=== PATIENT | male | born 1950 | race Caucasian/White ===

== ENCOUNTER 2017-01-17 09:08 | Observation (INO) | payer MEDICARE ==
[2017-01-17 10:12] LABS: BASO # 0.1 K/uL (0.0-0.2); BASO % 0.7 % (0.0-2.0); EOS # 0.1 K/uL (0.0-0.7); EOS % 0.9 % (0.0-4.0); HEMATOCRIT 39.7 % (35.0-51.0); LYMPH # 1.9 K/uL (1.0-4.3); LYMPH % 20.7 % (20.0-40.0); MEAN CELL VOLUME 91.5 fL (80.0-94.0); MEAN CORPUSCULAR HEMOGLOBIN 30.2 pg (27.0-31.0); MEAN CORPUSCULAR HGB CONC 33.1 g/dL (33.0-37.0); MONO # 0.6 K/uL (0.0-0.8); MONO % 6.8 % (0.0-10.0); RED CELL DISTRIBUTION WIDTH 12.6 % (11.5-14.5); WHITE BLOOD COUNT 9.2 K/uL (4.8-10.8)
[2017-01-17 10:19] LABS: CHLORIDE 101 mmol/L (98-107); SODIUM 137 mmol/L (132-148)
[2017-01-17 10:20] LABS: POTASSIUM 4.4 mmol/L (3.6-5.2)
[2017-01-17 10:22] LABS: ALB/GLOB RATIO 2.5 (1.0-2.1); ALKALINE PHOSPHATASE 60 U/L (38-126); ALT/SGPT 35 U/L (21-72); AST/SGOT 25 U/L (17-59); BILIRUBIN,TOTAL 0.8 mg/dL (0.2-1.3); BLOOD UREA NITROGEN 18 mg/dL (9-20); CARBON DIOXIDE 19 mmol/L (22-30); GFR AFRICAN-AMERICAN > 60; GLUCOSE,RANDOM 188 mg/dL (75-110); TOTAL PROTEIN 7.8 g/dL (6.3-8.3)
[2017-01-17 10:23] LABS: CALCIUM 9.1 mg/dl (8.6-10.4)
[2017-01-17 10:27] LABS: INR 0.9
--- NOTE | 2017-01-17 11:09 | C.PDOC ---
History Of Present Illness 66 y/o male presents to ED with complaints of worsening pain on right lower extremity with poor circulation. Patient was sent to ED by for evaluation. Patient denies fever, chills or any other complaints at this time. Chief Complaint (Nursing): Lower Extremity Problem/Injury History Per: Patient History/Exam Limitations: no limitations Onset/Duration Of Symptoms: Days Past Medical History Vital Signs: Last Vital Signs Temp 97.3 F L 01/17/17 14:15 Pulse 86 01/17/17 14:15 Resp 20 01/17/17 14:15 BP 147/74 01/17/17 14:15 Pulse Ox 97 01/17/17 18:04 - Medical History PMH: Diabetes, HTN, Hypercholesterolemia - [facility] Procedures CLOSED ENDOSCOPIC BIOPSY OF LUNG (12/24/14) Family History: States: No Known Family Hx - Social History Hx Tobacco Use: No Hx Alcohol Use: No Hx Substance Use: No - Immunization History Hx Tetanus Toxoid Vaccination: No Hx Influenza Vaccination: Yes Hx Pneumococcal Vaccination: No Review Of Systems Constitutional: Negative for: Fever, Chills Musculoskeletal: Positive for: Leg Pain. Negative for: Back Pain Skin: Negative for: Bruising Neurological: Negative for: Weakness Physical Exam - Physical Exam Appears: Non-toxic, No Acute Distress Skin: Normal Color, Warm Head: Atraumatic, Normacephalic Cardiovascular: Rhythm Regular Respiratory: Normal Breath Sounds, No Rales, No Rhonchi, No Wheezing Gastrointestinal/Abdominal: Soft, No Tenderness, No Guarding, No Rebound Extremity: Normal ROM, Other (1 cm oval ulcer to medial aspect of right great toe , no redness or warmth) Extremity: Right: Other (rt great toe and 2nd toe darker than other toes) Pulses: Right Dorsalis Pedis: Decreased Neurological/Psych: Oriented x3, Normal Speech, Normal Cognition, Normal Motor, Normal Sensation ED Course And Treatment - Laboratory Results Result Diagrams: 01/17/17 10:05 01/17/17 10:05 ECG Rhythm: Sinus Rhythm ECG Interpretation: Normal O2 Sat by Pulse Oximetry: 97 (Room air ) Pulse Ox Interpretation: Normal Medical Decision Making Medical Decision Making: discussed with Dr Gomez; pt to go for angiogram at 2, admit to his service. Disposition Discussed With DrRigo: Issac Gomez Jr. 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 - Scribe Statement The provider has reviewed the documentation as recorded by the Cece Wylie All medical record entries made by the Cece were at my direction and personally dictated by me. I have reviewed the chart and agree that the record accurately reflects my personal performance of the history, physical exam, medical decision making, and the department course for this patient. I have also personally directed, reviewed, and agree with the discharge instructions and disposition. Decision To Admit - Pt Status Changed To: Hospital Disposition Of: Observation - . Bed Request Type: Regular Admitting Physician: Issac Gomez Jr. Patient Diagnosis: Ulcer of foot, Venous insufficiency of right leg
--- NOTE | 2017-01-17 11:54 | RAD ---
HISTORY: pre op COMPARISON: Chest x-ray performed 01/17/15, CT chest with contrast performed 12/24/14 TECHNIQUE: Chest, one view. FINDINGS: LUNGS: Limited visualization of right lung apex cavitary mass which persists. Please note that chest x-ray has limited sensitivity for the detection of pulmonary masses. PLEURA: No significant pleural effusion identified. No definite pneumothorax . CARDIOVASCULAR: Heart size appears within normal limits. Atherosclerotic calcifications of the aorta. OSSEOUS STRUCTURES: Degenerative changes. Calcific tendinitis, right shoulder. Acromioclavicular arthropathy. VISUALIZED UPPER ABDOMEN: Unremarkable. OTHER FINDINGS: None. IMPRESSION: Limited visualization of right lung apex cavitary mass which persists, possibly slightly decreased in size since prior study.
[2017-01-17 14:25] VITALS: RESP 20
[2017-01-17] MEDS ORDERED: Propofol 10 mg/ml Inj (20 ML) ONE (15:03)
[2017-01-17] MEDS ORDERED: Midazolam 2 MG/2 ML VIAL ONE (15:03)
[2017-01-17] MEDS ORDERED: Iodixanol 320 MG/ML 100 ML BOTTLE IV ONE (15:15)
[2017-01-17] MEDS ORDERED: Iodixanol 320 MG/ML 200 ML BOTTLE IV ONE (15:15)
[2017-01-17] MEDS ORDERED: Sodium Chloride 0.9% 1,000 ML IV PRN (16:19)
[2017-01-17] MEDS ORDERED: HYDROmorphone 0.5 mg/0.5 ml ISec IVP PRN (16:19)
--- NOTE | 2017-01-17 16:24 | PCM.SURG1 ---
Surgeon's Initial Post Op Note - Surgeon's Notes Surgeon: beto Lieutenant/Deputy: 0 Type of Anesthesia: IV Sedation Anesthesia Administered By: marcus Pre-Operative Diagnosis: ischemic toe ulcer right Operative Findings: severe tibial disease on right. anterior tibial open to just above ankle. posterior tibial fades into collaterals. peroneal fades to collaterals. no intervention Post-Operative Diagnosis: same Operation Performed: aortofemoral angiogram via left groin with selective catherization of right anterior tibial artery Specimen/Specimens Removed: 0 Estimated Blood Loss: EBL {In ML}: 50 Blood Products Given: N/A Drains Used: No Drains Post-Op Condition: Good Date of Surgery/Procedure: 01/17/17 Time of Surgery/Procedure: 16:25
[2017-01-17] MEDS: Lactated Ringer's 1,000 ML IV SCH (17:52)
--- NOTE | 2017-01-17 20:07 | CP.PCM.HP ---
Past Patient History - Tetanus Immunizations Tetanus Immunization: Up to Date (2011) - Past Medical History & Family History Past Medical History?: Yes - Past Social History Smoking Status: Never Smoked - CARDIAC Hx Hypercholesterolemia: Yes Hx Hypertension: Yes - PULMONARY Hx Respiratory Disorders: Yes Hx Tuberculosis: Yes - NEUROLOGICAL Hx Neurological Disorder: No - HEENT Hx HEENT Problems: No - RENAL Hx Chronic Kidney Disease: No - ENDOCRINE/METABOLIC Hx Endocrine Disorders: Yes Hx Diabetes Mellitus Type 2: Yes - HEMATOLOGICAL/ONCOLOGICAL Hx Blood Disorders: No - INTEGUMENTARY Hx Dermatological Problems: No - MUSCULOSKELETAL/RHEUMATOLOGICAL Hx Falls: No - GASTROINTESTINAL Hx Gastrointestinal Disorders: No - GENITOURINARY/GYNECOLOGICAL Hx Genitourinary Disorders: No - PSYCHIATRIC Hx Substance Use: No - SURGICAL HISTORY Hx Surgeries: Yes Other/Comment: RT EYE SX - ANESTHESIA Hx Anesthesia: Yes Hx Anesthesia Reactions: No Hx Malignant Hyperthermia: No Meds Allergies/Adverse Reactions: Allergies Allergy/AdvReac Type Severity Reaction Status Date / Time No Known Allergies Allergy Verified 12/24/14 13:10 Results - Vital Signs Recent Vital Signs: Last Vital Signs Temp 98 F 01/17/17 17:00 Pulse 72 01/17/17 17:00 Resp 20 01/17/17 17:00 BP 123/72 01/17/17 17:00 Pulse Ox 97 01/17/17 18:05 - Labs Result Diagrams: 01/17/17 10:05 01/17/17 10:05
--- NOTE | 2017-01-17 21:51 | VAS ---
DATE: 01/17/2017 PREOPERATIVE DIAGNOSIS: Ischemic ulceration of right foot. PROCEDURE CARRIED OUT: Aortofemoral angiogram with selective catheterization of right anterior tibia l artery. SURGEON: Issac Gomez MD. DIRECTOR LABOR STANDARDS: None. ANESTHESIOLOGIST: Dr. Bourgeois. ANESTHESIA: Local with sedation. INDICATIONS: The patient is a 66-year-old male diabetic who presents with ischemic ulcer on the toe, he had been seen previously and initially treatment started conservatively. Today, he came to the E mergency Room because of increasing pain in the foot and nonhealing of the wound. OPERATIVE FINDINGS: The aorta, renal arteries and internal iliac arteries, external iliac arteries, common iliac arteries, common femoral arteries, profunda femoris arteries and superficial femoral art eries were normal. On the left side, the proximal 2/3 of the tibial vessels were seen, and they are basically intact. In the right leg, which was the affected leg, there was a slight degree of stenosi s in the popliteal artery. The anterior tibial artery was the dominant vessel into the foot; however , just above the ankle it was occluded and there were 2 other stenotic segments here. The posterior tibial trail off into collaterals as it approached the foot and the peroneal faded out into collatera ls. Subsequent to the performance of diagnostic arteriogram, a 6-Yoruba sheath was advanced over the aort ic bifurcation and positioned in the popliteal artery. Using road mapping techniques, the anterior t ibial artery was cannulated and the catheter inserted distally. With a variety of wires and techniqu es we attempted to cross a heavily calcified lesion at the distal portion of the anterior tibial mariusz ry just proximal to the dorsalis pedis, but were unable to do so. This is despite multiple attempts with multiple wires in multiple locations, etc. We then abandoned this and applied a Perclose device in the groin. Films were available which we reviewed, shows an intact dorsalis pedis artery with on ly a proximal occlusion of approximately a 1.5 cm. This would be amenable to bypass if the foot fails to improve. OPERATION CARRIED OUT: Aortofemoral angiogram with selective catheterization of right anterior tibia l artery, attempted crossing which was unsuccessful, Perclose deployment in the left groin. Issac Gomez Jr., MD cc:Vale Crow MD 56 TT: 01/17/2017 21:50:57 Confirmation # [id number] Dictation # [id number]
[2017-01-17] MEDS ORDERED: Rosuvastatin Calcium 2.5 mg Tab PO SCH (22:00)
[2017-01-17] MEDS: (Novolin R) Insulin Human Regular 100 units/ml vial SC SCH (22:16)
--- NOTE | 2017-01-17 23:40 | CP.PCM.CON ---
History of Present Illness - History of Present Illness History of Present Illness: Patient with hypertension diabetes PTB s/p treatment , - underwent angiogram- Right LE PAD currently patient has no complaints - but with a dry lesion right big toe, with no fever no chest pain PMH as above Social- non smoker non etoh brandy with family Review of Systems - Constitutional Constitutional: absent: Chills, Fever - EENT Eyes: absent: Change in Vision Ears: Ear Discharge. absent: Disequilibrium Nose/Mouth/Throat: Bleeding Gums - Cardiovascular Cardiovascular: Chest Pain, Pedal Edema - Respiratory Respiratory: Cough, Wheezing - Genitourinary Genitourinary: Difficulty Urinating - Musculoskeletal Musculoskeletal: Numbness, Radiating Pain into Limb - Integumentary Integumentary: Rash, Skin Ulcer (dry ulcer right big toe ) - Neurological Neurological: absent: Abnormal Hearing, Abnormal Movements, Behavioral Changes, Dizziness - Psychiatric Psychiatric: absent: Behavioral Changes, Confusion, Depression - Endocrine Endocrine: Palpitations - Hematologic/Lymphatic Hematologic: Easy Bleeding. absent: Easy Bruising Past Patient History - Tetanus Immunizations Tetanus Immunization: Up to Date (2011) - Past Medical History & Family History Past Medical History?: Yes - Past Social History Smoking Status: Never Smoked - CARDIAC Hx Hypercholesterolemia: Yes Hx Hypertension: Yes - PULMONARY Hx Respiratory Disorders: Yes (PTB s/p treatment ) Hx Tuberculosis: Yes - NEUROLOGICAL Hx Neurological Disorder: No - HEENT Hx HEENT Problems: No - RENAL Hx Chronic Kidney Disease: No - ENDOCRINE/METABOLIC Hx Endocrine Disorders: Yes Hx Diabetes Mellitus Type 2: Yes - HEMATOLOGICAL/ONCOLOGICAL Hx Blood Disorders: No - INTEGUMENTARY Hx Dermatological Problems: No - MUSCULOSKELETAL/RHEUMATOLOGICAL Hx Falls: No - GASTROINTESTINAL Hx Gastrointestinal Disorders: No - GENITOURINARY/GYNECOLOGICAL Hx Genitourinary Disorders: No - PSYCHIATRIC Hx Substance Use: No - SURGICAL HISTORY Hx Surgeries: Yes Other/Comment: RT EYE SX - ANESTHESIA Hx Anesthesia: Yes Hx Anesthesia Reactions: No Hx Malignant Hyperthermia: No Meds Allergies/Adverse Reactions: Allergies Allergy/AdvReac Type Severity Reaction Status Date / Time No Known Allergies Allergy Verified 12/24/14 13:10 - Medications Medications: Current Medications Enoxaparin Sodium (Lovenox) 30 mg SC DAILY [facility] Glimepiride (Amaryl) 4 mg PO BID [facility] Last Admin: 01/17/17 17:52 Dose: 4 mg Lactated Ringer's (Lactated Ringer's) 1,000 mls @ 100 mls/hr IV .Q10H [facility] Last Admin: 01/17/17 17:52 Dose: 100 mls/hr Sodium Chloride (Sodium Chloride 0.9%) 1,000 mls @ 1,000 mls/hr IV .Q1H PRN PRN Reason: Hypotension Insulin Human Regular (Novolin R) 0 unit SC ACHS [facility] PRN Reason: Protocol Last Admin: 01/17/17 22:16 Dose: Not Given Lisinopril (Zestril) 5 mg PO DAILY [facility] Metformin HCl (Glucophage) 1,000 mg PO BID [facility] Last Admin: 01/17/17 17:51 Dose: 1,000 mg Pneumococcal Polyvalent Vaccine (Pneumovax 23 Vaccine) 0.5 ml IM .ONCE ONE Stop: 01/18/17 10:01 Rosuvastatin Calcium (Crestor) 2.5 mg PO HS [facility] Last Admin: 01/17/17 21:32 Dose: 2.5 mg Physical Exam - Constitutional Appears: Well - Head Exam Head Exam: ATRAUMATIC, NORMOCEPHALIC - Eye Exam Eye Exam: Normal appearance. absent: Nystagmus - ENT Exam ENT Exam: Mucous Membranes Moist - Neck Exam Neck exam: Positive for: Normal Inspection. Negative for: Tenderness - Respiratory Exam Respiratory Exam: Clear to Auscultation Bilateral, NORMAL BREATHING PATTERN - Cardiovascular Exam Cardiovascular Exam: REGULAR RHYTHM - GI/Abdominal Exam GI & Abdominal Exam: Normal Bowel Sounds, Soft. absent: Tenderness - Extremities Exam Extremities exam: Positive for: full ROM, pedal pulses present (but weak- right , dry ulcer mid portion right big toe ). Negative for: joint swelling, pedal edema - Neurological Exam Neurological exam: Alert, Normal Gait, Oriented x3, Reflexes Normal - Psychiatric Exam Psychiatric exam: Normal Affect, Normal Mood - Skin Skin Exam: Intact, Normal Color Results - Vital Signs Recent Vital Signs: Last Vital Signs Temp 98 F 01/17/17 17:00 Pulse 72 01/17/17 17:00 Resp 20 01/17/17 17:00 BP 123/72 01/17/17 17:00 Pulse Ox 97 01/17/17 18:05 - Labs Result Diagrams: 01/18/17 08:30 01/18/17 08:30 Assessment & Plan - Assessment and Plan (Free Text) Assessment: Patient with Diabetes, Hypertension PAD right LE, went for angiogram, with dry gangrene spot right big toe- will consult podiatry, will contiune current meds, Accucheck with sliding scale, PT as needed GI DVT prophylaxis - Date & Time Date: 01/18/17 Time: 18:34
[2017-01-18] MEDS: Lactated Ringer's 1,000 ML IV SCH ×2 (04:19→05:16)
[2017-01-18] MEDS: (Novolin R) Insulin Human Regular 100 units/ml vial SC SCH ×2 (07:36→11:38)
[2017-01-18 08:36] LABS: HEMATOCRIT 35.2 % (35.0-51.0); MEAN CORPUSCULAR HEMOGLOBIN 30.5 pg (27.0-31.0); MEAN CORPUSCULAR HGB CONC 33.9 g/dL (33.0-37.0); MEAN PLATELET VOLUME 7.1 fL (7.2-11.7); RED CELL DISTRIBUTION WIDTH 12.8 % (11.5-14.5); WHITE BLOOD COUNT 8.4 K/uL (4.8-10.8)
[2017-01-18 08:51] LABS: CHLORIDE 102 mmol/L (98-107); POTASSIUM 4.1 mmol/L (3.6-5.2); SODIUM 135 mmol/L (132-148)
[2017-01-18 08:53] LABS: GFR AFRICAN-AMERICAN > 60
[2017-01-18 08:54] LABS: ALB/GLOB RATIO 1.3 (1.0-2.1); ALKALINE PHOSPHATASE 49 U/L (38-126); ALT/SGPT 21 U/L (21-72); AST/SGOT 25 U/L (17-59); BLOOD UREA NITROGEN 14 mg/dL (9-20); CALCIUM 8.4 mg/dl (8.6-10.4); CARBON DIOXIDE 22 mmol/L (22-30); GLUCOSE,RANDOM 122 mg/dL (75-110); TOTAL PROTEIN 6.6 g/dL (6.3-8.3)
[2017-01-18] MEDS ORDERED: Pantoprazole 40 mg EC Tab PO SCH (10:00)
[2017-01-18] MEDS ORDERED: Pneumococcal 23-Valent Vaccine IM ONE ×2 (10:00→12:22)
[2017-01-18] MEDS ORDERED: Enoxaparin 30 mg Syringe SC SCH (10:00)
--- NOTE | 2017-01-18 10:18 | CP.PCM.CON ---
<Ethan Daly - Last Filed: 01/18/17 10:13> History of Present Illness - History of Present Illness History of Present Illness: 66 y/o male with PMH of db, htn, and PAD evaluated at bedside for consult of right hallux dry non healing ulceration. Per patient he has had the wound on his right foot for roughly 3 months now but states that is has started to become discolored and is having mild pain in his right hallux. States that he was sent to the ED by Dr. Gomez to be admitted or eval and to have an angio done on his [facility] tleg to evaluate blood flow. States that he has been following up as an outpatient iw Dr. Lee as well. At this time patient states that he does have mild pain that has not increased or decreased since the operation. Does not have a dressing in place overlying the dry lesion. Denies any f/c/n/v/sob at this time. Past Patient History - Tetanus Immunizations Tetanus Immunization: Up to Date (2011) - Past Medical History & Family History Past Medical History?: Yes - Past Social History Smoking Status: Never Smoked - CARDIAC Hx Hypercholesterolemia: Yes Hx Hypertension: Yes - PULMONARY Hx Respiratory Disorders: Yes (PTB s/p treatment ) Hx Tuberculosis: Yes - NEUROLOGICAL Hx Neurological Disorder: No - HEENT Hx HEENT Problems: No - RENAL Hx Chronic Kidney Disease: No - ENDOCRINE/METABOLIC Hx Endocrine Disorders: Yes Hx Diabetes Mellitus Type 2: Yes - HEMATOLOGICAL/ONCOLOGICAL Hx Blood Disorders: No - INTEGUMENTARY Hx Dermatological Problems: No - MUSCULOSKELETAL/RHEUMATOLOGICAL Hx Falls: No - GASTROINTESTINAL Hx Gastrointestinal Disorders: No - GENITOURINARY/GYNECOLOGICAL Hx Genitourinary Disorders: No - PSYCHIATRIC Hx Substance Use: No - SURGICAL HISTORY Hx Surgeries: Yes Other/Comment: RT EYE SX - ANESTHESIA Hx Anesthesia: Yes Hx Anesthesia Reactions: No Hx Malignant Hyperthermia: No Meds Allergies/Adverse Reactions: Allergies Allergy/AdvReac Type Severity Reaction Status Date / Time No Known Allergies Allergy Verified 12/24/14 13:10 - Medications Medications: Current Medications Enoxaparin Sodium (Lovenox) 30 mg SC DAILY [facility] Last Admin: 01/18/17 09:52 Dose: 30 mg Glimepiride (Amaryl) 4 mg PO BID [facility] Last Admin: 01/18/17 09:52 Dose: 4 mg Lactated Ringer's (Lactated Ringer's) 1,000 mls @ 100 mls/hr IV .Q10H [facility] Last Admin: 01/18/17 05:16 Dose: 100 mls/hr Sodium Chloride (Sodium Chloride 0.9%) 1,000 mls @ 1,000 mls/hr IV .Q1H PRN PRN Reason: Hypotension Insulin Human Regular (Novolin R) 0 unit SC ACHS [facility] PRN Reason: Protocol Last Admin: 01/18/17 07:36 Dose: Not Given Lisinopril (Zestril) 5 mg PO DAILY [facility] Last Admin: 01/18/17 09:52 Dose: 5 mg Metformin HCl (Glucophage) 1,000 mg PO BID [facility] Last Admin: 01/18/17 09:52 Dose: 1,000 mg Pantoprazole Sodium (Protonix Ec Tab) 40 mg PO DAILY [facility] Last Admin: 01/18/17 09:52 Dose: 40 mg Rosuvastatin Calcium (Crestor) 2.5 mg PO HS [facility] Last Admin: 01/17/17 21:32 Dose: 2.5 mg Physical Exam - Constitutional Appears: Well, Non-toxic, No Acute Distress - Skin Skin Exam: Cyanosis, Dry - Additional Findings Additional findings: RLE: Vasc: PT non palp, DP 1/4 minimally palpable; popliteal pulse palp Temp gradient increased with foot colder than the leg; Cap fill time increased to right foot digits < 6 s x 5 Derm: There is a small roughly 1cm x 1cm dry escharous lesion noted on the distal medial tip of the right hallux, the wound is not open, no erythema, no drainage, no malodor, no signs of infection to the right hallux, there is increased hyperpigmentation around the wound and darkening of the entireity of the right hallux, Neuro: Grossly diminished Ortho: Limited evaluation. Results - Vital Signs Recent Vital Signs: Last Vital Signs Temp 98.6 F 01/18/17 01:10 Pulse 97 H 01/18/17 01:10 Resp 20 01/18/17 01:10 BP 115/72 01/18/17 01:10 Pulse Ox 98 01/18/17 01:10 - Labs Result Diagrams: 01/18/17 08:30 01/18/17 08:30 Labs: Laboratory Results - last 24 hr 01/18/17 01/18/17 08:30 08:30 WBC 8.4 RBC 3.91 L Hgb 11.9 L Hct 35.2 MCV 90.0 MCH 30.5 MCHC 33.9 RDW 12.8 Plt Count 257 MPV 7.1 L Sodium 135 Potassium 4.1 Chloride 102 Carbon Dioxide 22 Anion Gap 15 BUN 14 Creatinine 0.8 Est GFR ( Amer) > 60 Est GFR (Non-Af Amer) > 60 Random Glucose 122 H Calcium 8.4 L Total Bilirubin 1.0 AST 25 ALT 21 D Alkaline Phosphatase 49 Total Protein 6.6 Albumin 3.8 Globulin 2.8 Albumin/Globulin Ratio 1.3 Assessment & Plan - Assessment and Plan (Free Text) Assessment: 66 y/o male with right stable dry escharous ulceration of distal medial tip of hallux with present ischemia of hallux. Plan: Patient evaluated and chart reivewed Discussed in detail with Dr. talbert who is to rough later this PM on patient order placed for x-rays of right foot to eval underlying bone At this time the wound is stable and the main concern is demarcation of the ischemic area Dr. Gomez performed angio yesterday with attempted opening of the distal anterior tib artery without complete success. There is a minimally present DP pulse at this time; if worsening possible? bypass per Antoine Alfonso leave hallux open to air to keep wound dry at this time and will continue to eval ischemic demarcation. Will continue to follow. <Sharad Talbert D - Last Filed: 01/18/17 12:54> Meds - Medications Medications: Current Medications Enoxaparin Sodium (Lovenox) 30 mg SC DAILY [facility] Last Admin: 01/18/17 09:52 Dose: 30 mg Glimepiride (Amaryl) 4 mg PO BID [facility] Last Admin: 01/18/17 09:52 Dose: 4 mg Sodium Chloride (Sodium Chloride 0.9%) 1,000 mls @ 1,000 mls/hr IV .Q1H PRN PRN Reason: Hypotension Insulin Human Regular (Novolin R) 0 unit SC ACHS [facility] PRN Reason: Protocol Last Admin: 01/18/17 11:38 Dose: 2 unit Lisinopril (Zestril) 5 mg PO DAILY [facility] Metformin HCl (Glucophage) 1,000 mg PO BID [facility] Last Admin: 01/18/17 09:52 Dose: 1,000 mg Pantoprazole Sodium (Protonix Ec Tab) 40 mg PO DAILY [facility] Last Admin: 01/18/17 09:52 Dose: 40 mg Rosuvastatin Calcium (Crestor) 2.5 mg PO HS [facility] Last Admin: 01/17/17 21:32 Dose: 2.5 mg Results - Vital Signs Recent Vital Signs: Last Vital Signs Temp 98 F 01/18/17 08:00 Pulse 85 01/18/17 08:00 Resp 20 01/18/17 08:00 BP 117/72 01/18/17 08:00 Pulse Ox 97 01/18/17 08:00 - Labs Result Diagrams: 01/18/17 08:30 01/18/17 08:30 Labs: Laboratory Results - last 24 hr 01/18/17 01/18/17 08:30 08:30 WBC 8.4 RBC 3.91 L Hgb 11.9 L Hct 35.2 MCV 90.0 MCH 30.5 MCHC 33.9 RDW 12.8 Plt Count 257 MPV 7.1 L Sodium 135 Potassium 4.1 Chloride 102 Carbon Dioxide 22 Anion Gap 15 BUN 14 Creatinine 0.8 Est GFR ( Amer) > 60 Est GFR (Non-Af Amer) > 60 Random Glucose 122 H Calcium 8.4 L Total Bilirubin 1.0 AST 25 ALT 21 D Alkaline Phosphatase 49 Total Protein 6.6 Albumin 3.8 Globulin 2.8 Albumin/Globulin Ratio 1.3 Attending/Attestation - Attestation I have personally seen and examined this patient.: Yes I have fully participated in the care of the patient.: Yes I have reviewed all pertinent clinical information: Yes Notes (Text): 01/18/17 12:52 Pt seen for eval of right hallux ulcer. Pt is going home today. Pt is S/P angio. Pt to f/u with Dr. Lee next week. Pt may need Bypass in future - to follow up with Dr. Gomez as outpatient.
[2017-01-18 10:44] VITALS: BP 117/72; PULSE 85; TEMP 98; O2SAT 97
--- NOTE | 2017-01-18 11:51 | CP.PCM.PN ---
Subjective - Date & Time of Evaluation Date of Evaluation: 01/18/17 Time of Evaluation: 11:50 - Subjective Subjective: findings reviewed plans discussed with patient Objective - Vital Signs/Intake and Output Vital Signs (last 24 hours): Temp Pulse Resp BP Pulse Ox 98 F 85 20 117/72 97 01/18/17 08:00 01/18/17 08:00 01/18/17 08:00 01/18/17 08:00 01/18/17 08:00 Intake and Output: 01/18/17 01/18/17 06:59 18:59 Intake Total 1050 1040 Balance 1050 1040 - Medications Medications: Current Medications Enoxaparin Sodium (Lovenox) 30 mg SC DAILY [facility] Last Admin: 01/18/17 09:52 Dose: 30 mg Glimepiride (Amaryl) 4 mg PO BID [facility] Last Admin: 01/18/17 09:52 Dose: 4 mg Sodium Chloride (Sodium Chloride 0.9%) 1,000 mls @ 1,000 mls/hr IV .Q1H PRN PRN Reason: Hypotension Insulin Human Regular (Novolin R) 0 unit SC ACHS [facility] PRN Reason: Protocol Last Admin: 01/18/17 11:38 Dose: 2 unit Lisinopril (Zestril) 5 mg PO DAILY [facility] Metformin HCl (Glucophage) 1,000 mg PO BID [facility] Last Admin: 01/18/17 09:52 Dose: 1,000 mg Pantoprazole Sodium (Protonix Ec Tab) 40 mg PO DAILY [facility] Last Admin: 01/18/17 09:52 Dose: 40 mg Rosuvastatin Calcium (Crestor) 2.5 mg PO HS [facility] Last Admin: 01/17/17 21:32 Dose: 2.5 mg - Labs Labs: 01/18/17 08:30 01/18/17 08:30 PT 10.1 SECONDS (9.7-12.2) 01/17/17 10:05 INR 0.9 01/17/17 10:05 APTT 33 SECONDS (21-34) 01/17/17 10:05
--- NOTE | 2017-01-20 11:08 | CARD ---
APPROVED REPORT EKG Measurement Heart [id number] MD [id number] <Conclusion> Normal sinus rhythm Low voltage QRS Borderline ECG
== END 2017-01-18 13:20 | disposition home or self-care (01) ==
LOC: C.ER 09:08 → C.9E 11:22 → C.3T 13:31
PROVIDERS: ADMIT Surgery Vascular Surgery; ATTEND Surgery Vascular Surgery
DX: E11.52 Type 2 diabetes mellitus with diabetic peripheral angiopathy with gangrene (principal); E11.621 Type 2 diabetes mellitus with foot ulcer; E78.00 Pure hypercholesterolemia, unspecified; I10 Essential (primary) hypertension; I87.2 Venous insufficiency (chronic) (peripheral); Z86.11 Personal history of tuberculosis; Z23 Encounter for immunization
CPT/HCPCS: 36415; 71010; 80053; 85025; 85027; 85610; 85730; 90471; 90732; 99285; G0378; J1650; J7120

== ENCOUNTER 2017-05-26 09:16 | Inpatient (IN) | payer MEDICARE ==
[2017-05-26 10:38] LABS: BASO # 0.1 K/uL (0.0-0.2); BASO % 0.9 % (0.0-2.0); EOS # 0.1 K/uL (0.0-0.7); EOS % 1.4 % (0.0-4.0); HEMATOCRIT 39.3 % (35.0-51.0); LYMPH # 1.5 K/uL (1.0-4.3); LYMPH % 18.4 % (20.0-40.0); MEAN CORPUSCULAR HEMOGLOBIN 31.3 pg (27.0-31.0); MEAN PLATELET VOLUME 6.6 fL (7.2-11.7); MONO # 0.7 K/uL (0.0-0.8); MONO % 8.4 % (0.0-10.0); RED CELL DISTRIBUTION WIDTH 12.7 % (11.5-14.5); WHITE BLOOD COUNT 8.1 K/uL (4.8-10.8)
[2017-05-26 10:45] LABS: CHLORIDE 103 mmol/L (98-107); SODIUM 143 mmol/L (132-148)
[2017-05-26 10:47] LABS: GFR AFRICAN-AMERICAN > 60
[2017-05-26 10:48] LABS: BLOOD UREA NITROGEN 24 mg/dL (9-20); CALCIUM 9.9 mg/dl (8.6-10.4); CARBON DIOXIDE 21 mmol/L (22-30); GLUCOSE,RANDOM 109 mg/dL (75-110)
--- NOTE | 2017-05-26 11:00 | C.PDOC ---
History Of Present Illness Patient presents to ED due to PAD and worsening right toe gangrene. He was seen by Dr. Gomez as outpatient, and is scheduled to have procedure done a Alvaro. He denies current pain, injuries, fever, discharge. PMD Dr. Crow Time Seen by Provider: 05/26/17 09:37 Chief Complaint (Nursing): Medical Clearance History Per: Patient History/Exam Limitations: no limitations Onset/Duration Of Symptoms: Persistent Current Symptoms Are (Timing): Still Present Severity: Mild Past Medical History Reviewed: Historical Data, Nursing Documentation, Vital Signs Vital Signs: Last Vital Signs Temp 97.6 F 05/30/17 10:00 Pulse 104 H 05/30/17 10:00 Resp 20 05/30/17 10:00 BP 147/71 05/30/17 10:00 Pulse Ox 99 05/30/17 10:00 - Medical History PMH: Diabetes, HTN, Hypercholesterolemia - [facility] Procedures CLOSED ENDOSCOPIC BIOPSY OF LUNG (12/24/14) Family History: States: No Known Family Hx - Social History Hx Tobacco Use: No Hx Alcohol Use: No Hx Substance Use: No - Immunization History Hx Tetanus Toxoid Vaccination: No Hx Influenza Vaccination: Yes Hx Pneumococcal Vaccination: No Review Of Systems Except As Marked, All Systems Reviewed And Found Negative. Constitutional: Negative for: Fever Cardiovascular: Negative for: Chest Pain Respiratory: Negative for: Shortness of Breath Skin: Positive for: Other (right toe gangrene) Physical Exam - Physical Exam Appears: Well, Non-toxic, No Acute Distress Skin: Other (Right first toe - gangrenous wound medial aspect approx 2.5 cm in diameter) Oral Mucosa: Moist Cardiovascular: Rhythm Regular Respiratory: Normal Breath Sounds, No Rales, No Rhonchi, No Wheezing Gastrointestinal/Abdominal: Normal Exam, Bowel Sounds, Soft, No Tenderness Pulses: Left Dorsalis Pedis: Normal, Right Dorsalis Pedis: Normal Neurological/Psych: Oriented x3 ED Course And Treatment - Laboratory Results Result Diagrams: 05/30/17 08:00 05/30/17 06:24 ECG: Interpreted By Me, Viewed By Me (NSR 87 bpm, normal axis, no acute ST/T wave changes) ECG Interpretation: Normal O2 Sat by Pulse Oximetry: 98 (RA) Pulse Ox Interpretation: Normal - Radiology CXR: Interpreted by Me, Viewed By Me CXR Interpretation: Yes: No Acute Disease. No: Infiltrates Progress Note: Preop blood work, EKG, CXR ordered and reviewed. - Physician Consult Information Physician Contacted: Vale Crow Outcome Of Conversation: Discussed patient with Dr. Crow, she agrees with admission to her service for toe gangrene, to have bascular procedure by Dr. Gomez. ID consult Dr. Carr. She would like Hgb A1c ordered. Disposition - Disposition Disposition: HOSPITALIZED Disposition Time: 11:00 Condition: STABLE - Clinical Impression Clinical Impression: Toe gangrene, Peripheral arterial disease Decision To Admit - Pt Status Changed To: Hospital Disposition Of: Inpatient - Admit Certification Admit to Inpatient:: After my assessment, the patient will require hospitalization for at least two midnights. This is because of the severity of symptoms shown, intensity of services needed, and/or the medical risk in this patient being treated as an outpatient. - InPatient: Physician Admission Certification: I certify that this patient requires 2 or more midnights of care for the following reason:: see notes - . Bed Request Type: Regular Admitting Physician: Vale Crow Patient Diagnosis: Toe gangrene, Peripheral arterial disease
--- NOTE | 2017-05-26 11:50 | RAD ---
PROCEDURE: CHEST RADIOGRAPH, 1 VIEW HISTORY: preop COMPARISON: 01/17/2017 FINDINGS: LUNGS: Biapical pleural thickening with upper lobe granulomatous changes. Minimal left midlung atelectatic changes. No focal infiltrate or effusion. PLEURA: No pneumothorax or pleural fluid seen. CARDIOVASCULAR: Normal. OSSEOUS STRUCTURES: No significant abnormalities. VISUALIZED UPPER ABDOMEN: Normal. OTHER FINDINGS: None. IMPRESSION: Biapical pleural thickening with upper lobe granulomatous changes. Minimal left midlung atelectatic changes. No focal infiltrate or effusion.
[2017-05-26] MEDS ORDERED: Sodium Chloride 0.9% 500 ML IV ONE (12:12)
--- NOTE | 2017-05-26 12:35 | CP.PCM.CON ---
History of Present Illness - History of Present Illness History of Present Illness: Patient presents to ED due to PAD and worsening right toe gangrene. He was seen by Dr. Gomez as outpatient, and is scheduled to have procedure done a Alvaro. He denies current pain, injuries, fever, discharge. - Medical History PMH: Diabetes, HTN, Hypercholesterolemia - [facility] Procedures CLOSED ENDOSCOPIC BIOPSY OF LUNG (12/24/14) Review of Systems - Constitutional Constitutional: As Per HPI - EENT Eyes: absent: As Per HPI, Blind Spots, Blurred Vision, Change in Vision, Decreased Night Vision, Diplopia, Discharge, Dry Eye, Exophthalmos, Floaters, Irritation, Itchy Eyes, Loss of Peripheral Vision, Pain, Photophobia, Requires Corrective Lenses, Sees Flashes, Spots in Vision, Tunnel Vision, Other Visual Disturbances, Loss of Vision, Other Ears: absent: As Per HPI, Decreased Hearing, Ear Discharge, Ear Pain, Tinnitus, Abnormal Hearing, Disequilibrium, Dizziness, Other Nose/Mouth/Throat: absent: As Per HPI, Epistaxis, Nasal Congestion, Nasal Discharge, Nasal Obstruction, Nasal Trauma, Nose Pain, Post Nasal Drip, Sinus Pain, Sinus Pressure, Bleeding Gums, Change in Voice, Dental Pain, Dry Mouth, Dysphagia, Halitosis, Hoarsness, Lip Swelling, Mouth Lesions, Mouth Pain, Odynophagia, Sore Throat, Throat Swelling, Tongue Swelling, Facial Pain, Neck Pain, Neck Mass, Other - Cardiovascular Cardiovascular: absent: As Per HPI, Acrocyanosis, Chest Pain, Chest Pain at Rest , Chest Pain with Activity, Claudication, Diaphoresis, Dyspnea, Dyspnea on Exertion, Edema, Irregular Heart Rhythm, Pain Radiating to Arm/Neck/Jaw, Leg Edema, Leg Ulcers, Lightheadedness, Orthopnea, Palpitations, Paroxysmal Nocturnal Dyspnea, Pedal Edema, Radiating Pain, Rapid Heart Rate, Slow Heart Rate, Syncope, Other - Respiratory Respiratory: absent: As Per HPI, Cough, Dyspnea, Hemoptysis, Dyspnea on Exertion , Wheezing, Snoring, Stridor, Pain on Inspiration, Chest Congestion, Excessive Mucous Production, Change in Mucous Color, Pain with Coughing, Other - Gastrointestinal Gastrointestinal: absent: As Per HPI, Abdominal Pain, Belching, Bloating, Change in Bowel Habits, Change in Stool Character, Coffee Ground Emesis, Constipation, Cramping, Diarrhea, Dyspepsia, Dysphagia, Early Satiety, Excessive Flatus, Fecal Incontinence, Heartburn, Hematemesis, Hematochezia, Loose Stools, Melena, Nausea, Odynophagia, Temesmus, Vomiting, Other - Genitourinary Genitourinary: absent: As Per HPI, Change in Urinary Stream, Difficulty Urinating, Dysuria, Flank Pain, Hematuria, Pyuria, Nocturia, Urinary Incontinence, Urinary Frequency, Urinary Hesitance, Urinary Urgency, Voiding Freq/Small Amts, Freq UTI, Hx Renal/Bladder Calculi, Hx /Renal Surgery, Bladder Distension, Other - Musculoskeletal Musculoskeletal: absent: As Per HPI, Abnormal Gait, Arthralgias, Atrophy, Back Pain, Deformity, Joint Swelling, Limited Range of Motion, Loss of Height, Muscle Cramps, Muscle Weakness, Myalgias, Neck Pain, Numbness, Radiating Pain into Limb, Stiffness, Tingling, Other - Integumentary Integumentary: absent: As Per HPI, Acne, Alopecia, Bleeding Lesions, Change in Hair, Change in Nails, Change in Pigmentation, Changing Lesions, Dry Skin, Erythema, Furuncle, Hirsutism, Lesions, New Lesions, Non-Healing Lesions, Photosensitivity, Pruritus, Rash, Skin Pain, Skin Ulcer, Sores, Striae, Swelling , Unusual Bruising, Wounds, Jaundice, Other - Neurological Neurological: absent: As Per HPI, Abnormal Gait, Abnormal Hearing, Abnormal Movements, Abnormal Speech, Behavioral Changes, Burning Sensations, Confusion, Convulsions, Disequilibrium, Dizziness, Numbness, Focal Weakness, Frequent Falls , Headaches, Lack of Coordination, Loss of Vision, Memory Loss, Paresthesias, Radicular Pain, Restless Legs, Sensory Deficit, Syncope, Tingling, Tremor, Vertigo, Weakness, Other Visual Disturbances, Other - Psychiatric Psychiatric: absent: As Per HPI, Abnormal Sleep Pattern, Anhedonia, Anxiety, Auditory Hallucinations, Behavioral Changes, Change in Appetite, Change in Libido, Confusion, Depression, Difficulty Concentrating, Hallucinations, Homicidal Ideation, Hopelessness, Irritability, Memory Loss, Mood Swings, Panic Attacks, Paranoia, Suicidal Ideation, Visual Hallucinations, Tactile Hallucinations, Other - Endocrine Endocrine: absent: As Per HPI, Change in Body Appearance, Change in Libido, Cold Intolorance, Deepening of Voice, Excessive Sweating, Fatigue, Flushing, Heat Intolorance, Increase in Ring/Shoe/Hat Size, Palpitations, Polydipsia, Polyphagia, Polyuria, Other - Hematologic/Lymphatic Hematologic: absent: As Per HPI, Easy Bleeding, Easy Bruising, Lymphadenopathy, Other Past Patient History - Infectious Disease Hx of Infectious Diseases: None - Tetanus Immunizations Tetanus Immunization: Up to Date (2011) - Past Medical History & Family History Past Medical History?: Yes - Past Social History Smoking Status: Never Smoked - CARDIAC Hx Hypercholesterolemia: Yes Hx Hypertension: Yes - PULMONARY Hx Respiratory Disorders: Yes (PTB s/p treatment ) Hx Tuberculosis: Yes - NEUROLOGICAL Hx Neurological Disorder: No - HEENT Hx HEENT Problems: No - RENAL Hx Chronic Kidney Disease: No - ENDOCRINE/METABOLIC Hx Endocrine Disorders: Yes Hx Diabetes Mellitus Type 2: Yes - HEMATOLOGICAL/ONCOLOGICAL Hx Blood Disorders: No - INTEGUMENTARY Hx Dermatological Problems: No - MUSCULOSKELETAL/RHEUMATOLOGICAL Hx Falls: No - GASTROINTESTINAL Hx Gastrointestinal Disorders: No - GENITOURINARY/GYNECOLOGICAL Hx Genitourinary Disorders: No - PSYCHIATRIC Hx Substance Use: No - SURGICAL HISTORY Hx Surgeries: Yes Other/Comment: RT EYE SX - ANESTHESIA Hx Anesthesia: Yes Hx Anesthesia Reactions: No Hx Malignant Hyperthermia: No Meds Allergies/Adverse Reactions: Allergies Allergy/AdvReac Type Severity Reaction Status Date / Time No Known Allergies Allergy Verified 05/26/17 10:37 - Medications Medications: Current Medications Sodium Chloride (Sodium Chloride 0.9%) 500 mls @ 1,000 mls/hr IV .Q30M ONE Stop: 05/26/17 12:41 Last Admin: 05/26/17 12:33 Dose: 1,000 mls/hr Physical Exam - Constitutional Appears: Non-toxic, Chronically Ill - Head Exam Head Exam: NORMOCEPHALIC - Eye Exam Eye Exam: Normal appearance, PERRL. absent: Scleral icterus - ENT Exam ENT Exam: Mucous Membranes Dry, Normal External Ear Exam - Neck Exam Neck exam: Negative for: Lymphadenopathy - Respiratory Exam Respiratory Exam: Decreased Breath Sounds, Clear to Auscultation Bilateral - Cardiovascular Exam Cardiovascular Exam: REGULAR RHYTHM, +S1, +S2 - GI/Abdominal Exam GI & Abdominal Exam: Diminished Bowel Sounds, Soft. absent: Tenderness - Rectal Exam Rectal Exam: Deferred - Exam Exam: NORMAL INSPECTION - Extremities Exam Extremities exam: Positive for: pedal edema, tenderness. Negative for: calf tenderness, pedal pulses present Additional comments: ulcer right hallux likely ischemic - Back Exam Back exam: absent: CVA tenderness (L), CVA tenderness (R) - Neurological Exam Neurological exam: Alert, CN II-XII Intact, Oriented x3, Reflexes Normal - Psychiatric Exam Psychiatric exam: Normal Mood - Skin Skin Exam: Dry, Intact Results - Vital Signs Recent Vital Signs: Last Vital Signs Temp 98.6 F 05/26/17 09:29 Pulse 88 05/26/17 12:09 Resp 16 05/26/17 12:09 BP 135/81 05/26/17 12:09 Pulse Ox 100 05/26/17 12:09 - Labs Result Diagrams: 05/30/17 08:00 05/30/17 06:24 Labs: Laboratory Results - last 24 hr 05/26/17 05/26/17 05/26/17 10:32 10:32 10:32 WBC 8.1 RBC 4.27 L Hgb 13.3 Hct 39.3 MCV 92.0 D MCH 31.3 H MCHC 34.0 RDW 12.7 Plt Count 398 D MPV 6.6 L Neut % (Auto) 70.9 Lymph % (Auto) 18.4 L [place] % (Auto) 8.4 Eos % (Auto) 1.4 Baso % (Auto) 0.9 Neut # 5.8 Lymph # 1.5 [place] # 0.7 Eos # 0.1 Baso # 0.1 PT 10.9 INR 1.0 APTT 33 Sodium 143 Potassium 4.0 Chloride 103 Carbon Dioxide 21 L Anion Gap 23 H BUN 24 H Creatinine 0.9 Est GFR ( Amer) > 60 Est GFR (Non-Af Amer) > 60 Random Glucose 109 Hemoglobin A1c Calcium 9.9 05/26/17 11:40 WBC RBC Hgb Hct MCV MCH MCHC RDW Plt Count MPV Neut % (Auto) Lymph % (Auto) [place] % (Auto) Eos % (Auto) Baso % (Auto) Neut # Lymph # [place] # Eos # Baso # PT INR APTT Sodium Potassium Chloride Carbon Dioxide Anion Gap BUN Creatinine Est GFR ( Amer) Est GFR (Non-Af Amer) Random Glucose Hemoglobin A1c 7.2 H D Calcium Assessment & Plan (1) Peripheral arterial disease Status: Acute (2) Toe gangrene Status: Acute - Assessment and Plan (Free Text) Assessment: gangrene right toe- likely ischemic check cultures start iv rx vascular and cardio eval robert
[2017-05-26] MEDS ORDERED: Piperacillin/Tazobact 3.375 gm 100 ML IVPB ONE (12:57)
--- NOTE | 2017-05-26 13:01 | CP.PCM.HP ---
History of Present Illness - History of Present Illness History of Present Illness: 66 y. o. male with PMH IDDM2 Hypertension History PTB s/p therapy C Dif 2014 PVD- right foot NKDA Non smoker REtired no surgery was adnitted due to worsening PVD right foot- for bypass ROS no fever pain in the foot no chest pain no cough no diarrhea Medications lisinopril 20 od metformin 1000 BID Glimepride 4 BID Lants 24 units SQ daily Present on Admission - Present on Admission Any Indicators Present on Admission: Yes History of DVT/PE: No History of Uncontrolled Diabetes: Yes Urinary Catheter: No Review of Systems - Constitutional Constitutional: absent: Anorexia, Chills, Lethargy - EENT Eyes: absent: Blurred Vision, Other Visual Disturbances Ears: absent: Disequilibrium, Dizziness Nose/Mouth/Throat: absent: Nasal Congestion, Sinus Pain - Cardiovascular Cardiovascular: absent: Chest Pain, Diaphoresis, Dyspnea, Lightheadedness, Orthopnea - Respiratory Respiratory: absent: Cough, Wheezing, Chest Congestion - Gastrointestinal Gastrointestinal: absent: Abdominal Pain, Constipation, Diarrhea - Genitourinary Genitourinary: absent: Difficulty Urinating, Flank Pain - Musculoskeletal Musculoskeletal: absent: Abnormal Gait, Deformity, Joint Swelling - Integumentary Integumentary: Lesions (right bigtoe-gangrene with on and off pulsating pain) - Neurological Neurological: absent: Abnormal Hearing, Abnormal Movements, Abnormal Speech, Behavioral Changes, Convulsions - Psychiatric Psychiatric: absent: Behavioral Changes, Confusion, Depression Past Patient History - Infectious Disease Hx of Infectious Diseases: None - Tetanus Immunizations Tetanus Immunization: Up to Date (2011) - Past Medical History & Family History Past Medical History?: Yes - Past Social History Smoking Status: Never Smoked - CARDIAC Hx Hypercholesterolemia: Yes Hx Hypertension: Yes - PULMONARY Hx Respiratory Disorders: Yes (PTB s/p treatment ) Hx Tuberculosis: Yes - NEUROLOGICAL Hx Neurological Disorder: No - HEENT Hx HEENT Problems: No - RENAL Hx Chronic Kidney Disease: No - ENDOCRINE/METABOLIC Hx Endocrine Disorders: Yes Hx Diabetes Mellitus Type 2: Yes - HEMATOLOGICAL/ONCOLOGICAL Hx Blood Disorders: No - INTEGUMENTARY Hx Dermatological Problems: No - MUSCULOSKELETAL/RHEUMATOLOGICAL Hx Falls: No - GASTROINTESTINAL Hx Gastrointestinal Disorders: No - GENITOURINARY/GYNECOLOGICAL Hx Genitourinary Disorders: No - PSYCHIATRIC Hx Substance Use: No - SURGICAL HISTORY Hx Surgeries: Yes Other/Comment: RT EYE SX - ANESTHESIA Hx Anesthesia: Yes Hx Anesthesia Reactions: No Hx Malignant Hyperthermia: No Meds Allergies/Adverse Reactions: Allergies Allergy/AdvReac Type Severity Reaction Status Date / Time No Known Allergies Allergy Verified 05/26/17 10:37 Physical Exam - Constitutional Appears: Well, Non-toxic - Head Exam Head Exam: ATRAUMATIC, NORMAL INSPECTION - Eye Exam Eye Exam: Normal appearance. absent: Periorbital tenderness - ENT Exam ENT Exam: Mucous Membranes Moist - Neck Exam Neck exam: Negative for: Meningismus - Respiratory Exam Respiratory Exam: Clear to Auscultation Bilateral, NORMAL BREATHING PATTERN - Cardiovascular Exam Cardiovascular Exam: REGULAR RHYTHM - GI/Abdominal Exam GI & Abdominal Exam: Normal Bowel Sounds, Soft. absent: Tenderness - Extremities Exam Extremities exam: Positive for: full ROM. Negative for: joint swelling, pedal edema (with weak pedal pulses right big toe gangene ) - Back Exam Back exam: absent: CVA tenderness (R), tenderness - Neurological Exam Neurological exam: Alert, Normal Gait, Oriented x3, Reflexes Normal - Psychiatric Exam Psychiatric exam: Normal Affect, Normal Mood - Skin Skin Exam: Intact (except for right big toe gangrene ), Normal Color Results - Vital Signs Recent Vital Signs: Last Vital Signs Temp 98.6 F 05/26/17 09:29 Pulse 88 05/26/17 12:09 Resp 16 05/26/17 12:09 BP 135/81 05/26/17 12:09 Pulse Ox 100 05/26/17 12:09 - Labs Result Diagrams: 05/26/17 10:32 05/26/17 10:32 Labs: Laboratory Results - last 24 hr 05/26/17 05/26/17 05/26/17 10:32 10:32 10:32 WBC 8.1 RBC 4.27 L Hgb 13.3 Hct 39.3 MCV 92.0 D MCH 31.3 H MCHC 34.0 RDW 12.7 Plt Count 398 D MPV 6.6 L Neut % (Auto) 70.9 Lymph % (Auto) 18.4 L [place] % (Auto) 8.4 Eos % (Auto) 1.4 Baso % (Auto) 0.9 Neut # 5.8 Lymph # 1.5 [place] # 0.7 Eos # 0.1 Baso # 0.1 PT 10.9 INR 1.0 APTT 33 Sodium 143 Potassium 4.0 Chloride 103 Carbon Dioxide 21 L Anion Gap 23 H BUN 24 H Creatinine 0.9 Est GFR ( Amer) > 60 Est GFR (Non-Af Amer) > 60 Random Glucose 109 Hemoglobin A1c Calcium 9.9 05/26/17 11:40 WBC RBC Hgb Hct MCV MCH MCHC RDW Plt Count MPV Neut % (Auto) Lymph % (Auto) [place] % (Auto) Eos % (Auto) Baso % (Auto) Neut # Lymph # [place] # Eos # Baso # PT INR APTT Sodium Potassium Chloride Carbon Dioxide Anion Gap BUN Creatinine Est GFR ( Amer) Est GFR (Non-Af Amer) Random Glucose Hemoglobin A1c 7.2 H D Calcium Assessment & Plan - Assessment and Plan (Free Text) Assessment: Patient with Hypertension IDDM2, with worsening PVD gangrene right big toe- for bypass will hold oral DM meds will continue Insulin, as needed and adjust accordingly Accuchecks Cardiac Clearance DVT prophylaxis- on hold- patient is for OR patient is aware of plan
[2017-05-26] MEDS: Piperacillin/Tazobact 3.375 GM in Sodium Chloride 100 ML IVPB SCH ×2 (13:04→22:12)
--- NOTE | 2017-05-26 14:21 | CP.PCM.CON ---
History of Present Illness - History of Present Illness History of Present Illness: Vascular Surgery - Dr. Gomez 66 yo M w/ hx of IDDM2, HTN, PVD s/p Angiogram in December [address] Gomez, admitted with worsening PVD of the R foot in need of vascular bypass. Pt denies any pain in the foot currently but states that he does have occasional pain that occurs at rest. He denies any other symptoms including chest pain, SOB, N/V, F/C, Diarrhea/Constipation. PMH: IDDM2, HTN, PVD, Cdiff in 2014, PTB (sp treatment) PSH: Angiogram 12/2016 which showed severe tibial disease on the R Meds include Lisinopril, Metformin, Glimepride, Lantus NKDA Review of Systems - Review of Systems All systems: reviewed and no additional remarkable complaints except (as per HPI ) Past Patient History - Infectious Disease Hx of Infectious Diseases: None - Tetanus Immunizations Tetanus Immunization: Up to Date (2011) - Past Medical History & Family History Past Medical History?: Yes - Past Social History Smoking Status: Never Smoked - CARDIAC Hx Hypercholesterolemia: Yes Hx Hypertension: Yes - PULMONARY Hx Respiratory Disorders: Yes (PTB s/p treatment ) Hx Tuberculosis: Yes - NEUROLOGICAL Hx Neurological Disorder: No - HEENT Hx HEENT Problems: No - RENAL Hx Chronic Kidney Disease: No - ENDOCRINE/METABOLIC Hx Endocrine Disorders: Yes Hx Diabetes Mellitus Type 2: Yes - HEMATOLOGICAL/ONCOLOGICAL Hx Blood Disorders: No - INTEGUMENTARY Hx Dermatological Problems: No - MUSCULOSKELETAL/RHEUMATOLOGICAL Hx Falls: No - GASTROINTESTINAL Hx Gastrointestinal Disorders: No - GENITOURINARY/GYNECOLOGICAL Hx Genitourinary Disorders: No - PSYCHIATRIC Hx Substance Use: No - SURGICAL HISTORY Hx Surgeries: Yes Other/Comment: RT EYE SX - ANESTHESIA Hx Anesthesia: Yes Hx Anesthesia Reactions: No Hx Malignant Hyperthermia: No Meds Allergies/Adverse Reactions: Allergies Allergy/AdvReac Type Severity Reaction Status Date / Time No Known Allergies Allergy Verified 05/26/17 10:37 - Medications Medications: Current Medications Vancomycin HCl 500 mg/ Sodium (Chloride) 100 mls @ 100 mls/hr IVPB Q12H KIMBERLY Last Admin: 05/26/17 13:50 Dose: 100 mls/hr Piperacillin Sod/Tazobactam (Sod 3.375 gm/ Sodium Chloride) 100 mls @ 200 mls/ hr IVPB Q8H KIMBERLY Last Admin: 05/26/17 13:04 Dose: 200 mls/hr Lisinopril (Zestril) 20 mg PO DAILY KIMBERLY Pantoprazole Sodium (Protonix Inj) 40 mg IVP DAILY KIMBERLY Rosuvastatin Calcium (Crestor) 10 mg PO HS KIMBERLY Physical Exam - Constitutional Appears: No Acute Distress - Head Exam Head Exam: ATRAUMATIC, NORMAL INSPECTION, NORMOCEPHALIC - Eye Exam Eye Exam: Normal appearance - Respiratory Exam Respiratory Exam: NORMAL BREATHING PATTERN. absent: Respiratory Distress - Cardiovascular Exam Cardiovascular Exam: REGULAR RHYTHM - Extremities Exam Extremities exam: Negative for: calf tenderness, pedal edema, tenderness, pedal pulses present Additional comments: palpable Popliteal pulses b/l, no palpable pedal pulses - Neurological Exam Neurological exam: Alert, Oriented x3 - Psychiatric Exam Psychiatric exam: Normal Affect, Normal Mood - Skin Skin Exam: Dry, Intact Results - Vital Signs Recent Vital Signs: Last Vital Signs Temp 98.2 F 05/26/17 13:48 Pulse 88 05/26/17 13:48 Resp 16 05/26/17 13:48 BP 137/84 05/26/17 13:48 Pulse Ox 98 05/26/17 13:48 - Labs Result Diagrams: 05/26/17 10:32 05/26/17 10:32 Labs: Laboratory Results - last 24 hr 05/26/17 05/26/17 05/26/17 10:32 10:32 10:32 WBC 8.1 RBC 4.27 L Hgb 13.3 Hct 39.3 MCV 92.0 D MCH 31.3 H MCHC 34.0 RDW 12.7 Plt Count 398 D MPV 6.6 L Neut % (Auto) 70.9 Lymph % (Auto) 18.4 L [place] % (Auto) 8.4 Eos % (Auto) 1.4 Baso % (Auto) 0.9 Neut # 5.8 Lymph # 1.5 [place] # 0.7 Eos # 0.1 Baso # 0.1 PT 10.9 INR 1.0 APTT 33 Sodium 143 Potassium 4.0 Chloride 103 Carbon Dioxide 21 L Anion Gap 23 H BUN 24 H Creatinine 0.9 Est GFR ( Amer) > 60 Est GFR (Non-Af Amer) > 60 POC Glucose (mg/dL) Random Glucose 109 Hemoglobin A1c Calcium 9.9 05/26/17 05/26/17 11:40 13:15 WBC RBC Hgb Hct MCV MCH MCHC RDW Plt Count MPV Neut % (Auto) Lymph % (Auto) [place] % (Auto) Eos % (Auto) Baso % (Auto) Neut # Lymph # [place] # Eos # Baso # PT INR APTT Sodium Potassium Chloride Carbon Dioxide Anion Gap BUN Creatinine Est GFR ( Amer) Est GFR (Non-Af Amer) POC Glucose (mg/dL) 134 H Random Glucose Hemoglobin A1c 7.2 H D Calcium Assessment & Plan - Assessment and Plan (Free Text) Assessment: 66yo M w/ worsening RLE PVD -OR Friday for vascular bypass of the RLE -Cardiac Clearance prior to OR -Medical Optimization -NPO after midnight Friday ODELL Quiroz PGY3
--- NOTE | 2017-05-26 22:28 | CP.PCM.CON ---
History of Present Illness - History of Present Illness History of Present Illness: CC: Pre Op cardiac Risk Assessment 66 yo M w/ hx of IDDM2, HTN, PVD s/p Angiogram in December [address] Gomez, admitted with worsening PVD of the R foot in need of vascular bypass. Pt denies any pain in the foot currently but states that he does have occasional pain that occurs at rest. He denies any other symptoms including chest pain, SOB, N/V, F/C, Diarrhea/Constipation. PMH: IDDM2, HTN, PVD, Cdiff in 2014, PTB (sp treatment) PSH: Angiogram 12/2016 which showed severe tibial disease on the R Meds include Lisinopril, Metformin, Glimepride, Lantus NKDA Review of Systems - Review of Systems All systems: reviewed and no additional remarkable complaints except (as per HPI ) Physical Exam - Constitutional Appears: No Acute Distress - Head Exam Head Exam: ATRAUMATIC, NORMAL INSPECTION, NORMOCEPHALIC - Eye Exam Eye Exam: Normal appearance - Respiratory Exam Respiratory Exam: NORMAL BREATHING PATTERN. absent: Respiratory Distress - Cardiovascular Exam Cardiovascular Exam: REGULAR RHYTHM - Extremities Exam Extremities exam: Negative for: calf tenderness, pedal edema, tenderness, pedal pulses present Additional comments: palpable Popliteal pulses b/l, no palpable pedal pulses - Neurological Exam Neurological exam: Alert, Oriented x3 - Psychiatric Exam Psychiatric exam: Normal Affect, Normal Mood - Skin Skin Exam: Dry, Intact Past Patient History - Infectious Disease Hx of Infectious Diseases: None - Tetanus Immunizations Tetanus Immunization: Up to Date (2011) - Past Medical History & Family History Past Medical History?: Yes - Past Social History Smoking Status: Never Smoked - CARDIAC Hx Hypercholesterolemia: Yes Hx Hypertension: Yes - PULMONARY Hx Respiratory Disorders: Yes (PTB s/p treatment ) Hx Tuberculosis: Yes - NEUROLOGICAL Hx Neurological Disorder: No - HEENT Hx HEENT Problems: No - RENAL Hx Chronic Kidney Disease: No - ENDOCRINE/METABOLIC Hx Endocrine Disorders: Yes Hx Diabetes Mellitus Type 2: Yes - HEMATOLOGICAL/ONCOLOGICAL Hx Blood Disorders: No - INTEGUMENTARY Hx Dermatological Problems: No - MUSCULOSKELETAL/RHEUMATOLOGICAL Hx Falls: No - GASTROINTESTINAL Hx Gastrointestinal Disorders: No - GENITOURINARY/GYNECOLOGICAL Hx Genitourinary Disorders: No - PSYCHIATRIC Hx Substance Use: No - SURGICAL HISTORY Hx Surgeries: Yes Other/Comment: RT EYE SX - ANESTHESIA Hx Anesthesia: Yes Hx Anesthesia Reactions: No Hx Malignant Hyperthermia: No Meds Allergies/Adverse Reactions: Allergies Allergy/AdvReac Type Severity Reaction Status Date / Time No Known Allergies Allergy Verified 05/26/17 10:37 - Medications Medications: Current Medications Vancomycin HCl 500 mg/ Sodium (Chloride) 100 mls @ 100 mls/hr IVPB Q12H [facility] Last Admin: 05/26/17 13:50 Dose: 100 mls/hr Piperacillin Sod/Tazobactam (Sod 3.375 gm/ Sodium Chloride) 100 mls @ 200 mls/ hr IVPB Q8H [facility] Last Admin: 05/26/17 22:12 Dose: 200 mls/hr Lisinopril (Zestril) 20 mg PO DAILY [facility] Pantoprazole Sodium (Protonix Inj) 40 mg IVP DAILY [facility] Rosuvastatin Calcium (Crestor) 10 mg PO HS [facility] Last Admin: 05/26/17 22:13 Dose: 10 mg Results - Vital Signs Recent Vital Signs: Last Vital Signs Temp 98.1 F 05/26/17 15:10 Pulse 80 05/26/17 15:10 Resp 20 05/26/17 15:10 BP 145/79 05/26/17 15:10 Pulse Ox 98 05/26/17 15:10 - Labs Result Diagrams: 05/26/17 10:32 05/26/17 10:32 Labs: Laboratory Results - last 24 hr 05/26/17 05/26/17 05/26/17 10:32 10:32 10:32 WBC 8.1 RBC 4.27 L Hgb 13.3 Hct 39.3 MCV 92.0 D MCH 31.3 H MCHC 34.0 RDW 12.7 Plt Count 398 D MPV 6.6 L Neut % (Auto) 70.9 Lymph % (Auto) 18.4 L [place] % (Auto) 8.4 Eos % (Auto) 1.4 Baso % (Auto) 0.9 Neut # 5.8 Lymph # 1.5 [place] # 0.7 Eos # 0.1 Baso # 0.1 PT 10.9 INR 1.0 APTT 33 Sodium 143 Potassium 4.0 Chloride 103 Carbon Dioxide 21 L Anion Gap 23 H BUN 24 H Creatinine 0.9 Est GFR ( Amer) > 60 Est GFR (Non-Af Amer) > 60 POC Glucose (mg/dL) Random Glucose 109 Hemoglobin A1c Calcium 9.9 05/26/17 05/26/17 05/26/17 11:40 13:15 16:38 WBC RBC Hgb Hct MCV MCH MCHC RDW Plt Count MPV Neut % (Auto) Lymph % (Auto) [place] % (Auto) Eos % (Auto) Baso % (Auto) Neut # Lymph # [place] # Eos # Baso # PT INR APTT Sodium Potassium Chloride Carbon Dioxide Anion Gap BUN Creatinine Est GFR ( Amer) Est GFR (Non-Af Amer) POC Glucose (mg/dL) 134 H 171 H Random Glucose Hemoglobin A1c 7.2 H D Calcium 05/26/17 21:55 WBC RBC Hgb Hct MCV MCH MCHC RDW Plt Count MPV Neut % (Auto) Lymph % (Auto) [place] % (Auto) Eos % (Auto) Baso % (Auto) Neut # Lymph # [place] # Eos # Baso # PT INR APTT Sodium Potassium Chloride Carbon Dioxide Anion Gap BUN Creatinine Est GFR ( Amer) Est GFR (Non-Af Amer) POC Glucose (mg/dL) 184 H Random Glucose Hemoglobin A1c Calcium Assessment & Plan - Assessment and Plan (Free Text) Assessment: 66 Male with no cardiac symptoms with recent cardiac work up Stress test: Normal ECHO: Normal EF This patient assessed as low to intermediate cardiac risk for Vascular Bypass of Lower extremity under general anaesthesia If benefit outweighs the risk, please proceed with the surgery
[2017-05-27] MEDS: Piperacillin/Tazobact 3.375 GM in Sodium Chloride 100 ML IVPB SCH ×3 (05:19→22:04)
--- NOTE | 2017-05-27 09:28 | CP.PCM.PN ---
Subjective - Date & Time of Evaluation Date of Evaluation: 05/27/17 Time of Evaluation: 09:24 - Subjective Subjective: Vascular Surgery - Dr. Gomez Pt S&E. RADHAMES. Pt denies any complaints this morning. He was seen by Dr. Sanz yesterday and cleared from cardiac standpoint for surgery. Objective - Vital Signs/Intake and Output Vital Signs (last 24 hours): Temp Pulse Resp BP Pulse Ox 98.1 F 84 20 147/94 H 97 05/27/17 08:50 05/27/17 08:50 05/27/17 08:50 05/27/17 08:50 05/27/17 08:50 - Medications Medications: Current Medications Vancomycin HCl 500 mg/ Sodium (Chloride) 100 mls @ 100 mls/hr IVPB Q12H [facility] Last Admin: 05/27/17 01:24 Dose: 100 mls/hr Piperacillin Sod/Tazobactam (Sod 3.375 gm/ Sodium Chloride) 100 mls @ 200 mls/ hr IVPB Q8H [facility] Last Admin: 05/27/17 05:19 Dose: 200 mls/hr Lisinopril (Zestril) 20 mg PO DAILY [facility] Pantoprazole Sodium (Protonix Inj) 40 mg IVP DAILY [facility] Rosuvastatin Calcium (Crestor) 10 mg PO HS [facility] Last Admin: 05/26/17 22:13 Dose: 10 mg - Labs Labs: 05/26/17 10:32 05/26/17 10:32 PT 10.9 SECONDS (9.7-12.2) 05/26/17 10:32 INR 1.0 05/26/17 10:32 APTT 33 SECONDS (21-34) 05/26/17 10:32 - Constitutional Appears: No Acute Distress - Head Exam Head Exam: ATRAUMATIC, NORMAL INSPECTION, NORMOCEPHALIC - Eye Exam Eye Exam: Normal appearance - Respiratory Exam Respiratory Exam: NORMAL BREATHING PATTERN. absent: Clear to Ausculation Bilateral - Cardiovascular Exam Cardiovascular Exam: REGULAR RHYTHM - Extremities Exam Extremities Exam: absent: Pedal Edema, Tenderness Additional comments: RLE - palpable popliteal, absent PT and DP, old poorly healing ulcer to the great toe LLE - palpable popliteal and distal pulses - Neurological Exam Neurological Exam: Alert, Oriented x3 - Psychiatric Exam Psychiatric exam: Normal Affect, Normal Mood - Skin Skin Exam: Dry, Intact Assessment and Plan - Assessment and Plan (Free Text) Assessment: 66yo M w/ worsening RLE PVD -OR tomorrow AM for bypass -Cleared from cardiac standpoint as low/intermediate risk for surgery -Vein mapping today -NPO after midnight dominique Quiroz PGY3
--- NOTE | 2017-05-27 10:02 | VASCLAB ---
PROCEDURE: Lower Extremity Vein mapping. HISTORY: pre op PRIORS: None. TECHNIQUE: Bilateral common femoral, femoral, popliteal and posterior tibial, peroneal and great saphenous veins were evaluated. Flow was assessed with color Doppler, compressibility, assessment of phasic flow and augmentation response. Report prepared by Narendra Tran, HALLIE, RVT FINDINGS: RIGHT: 1. Common Femoral Vein: Compressibility - Fully compressible: Thrombus - None : Flow - Phasic: Augmentation -Normal: Reflux - None. 2. Femoral Vein:Compressibility - Fully compressible: Thrombus - None 3. Popliteal Vein: Compressibility - Fully compressible: Thrombus - None 4. Posterior Tibial Vein: Compressibility - Fully compressible: Thrombus - None 5. Peroneal Vein:Compressibility - Fully compressible: Thrombus - None 6. Greater Saphenous Vein: Compressibility - Fully compressible: Thrombus - None 6.1. Thigh - Proximal Diameter: 0.35cm. Mid Diameter: 0.29cm. Distal Diameter: 0.29cm. Knee - Diameter 0.24cm 7. 7.1. Calf - Proximal Diameter: 0.26cm. Mid Diameter:0.25cm. Distal Diameter: 0.28cm 7.2. Ankle - Diameter: 0.28cm 8. [place] Saphenous Vein: Compressibility - Fully compressible: thrombus - None 8.1. Knee - Diameter 0.30cm 8.2. Calf - Proximal Diameter: 0.24cm. Mid Diameter: 0.26cm. Distal Diameter: 0.22cm. 8.3. Ankle - Diameter: 0.20cm LEFT: 1. Common Femoral Vein: Compressibility - Fully compressible: Thrombus - None : Flow - Phasic: Augmentation -Normal: Reflux - None. 2. Femoral Vein:Compressibility - Fully compressible: Thrombus - None 3. Popliteal Vein: Compressibility - Fully compressible: Thrombus - None 4. Posterior Tibial Vein: Compressibility - Fully compressible: Thrombus - None 5. Peroneal Vein:Compressibility - Fully compressible: Thrombus - None 6. Greater Saphenous Vein: Compressibility - Fully compressible: Thrombus - None 6.1. Thigh - Proximal Diameter: 0.41cm. Mid Diameter: 0.24cm. Distal Diameter: 0.22cm. Knee - Diameter 0.22cm 7. 7.1. Calf - Proximal Diameter: 0.22cm. Mid Diameter:0.21cm. Distal Diameter: 0.24cm 7.2. Ankle - Diameter: 0.26cm 8. [place] Saphenous Vein: Compressibility - Fully compressible: thrombus - None 8.1. Knee - Diameter 0.42cm 8.2. Calf - Proximal Diameter: 0.34cm. Mid Diameter: 0.12cm. Distal Diameter: cm. 8.3. Ankle - Diameter: cm OTHER FINDINGS: Bilateral lower extremity common femoral, femoral, popliteal, posterior tibial, peroneal, greater and lesser saphenous veins were fully compressible. IMPRESSION: Right: Diameter measurements of the right greater saphenous vein are measured between 0.24 cm and 0.35 cm and lesser saphenous vein is measured between 0.20 cm and 0.30 cm. Left: Diameter measurements of the left greater saphenous vein are measured between 0.21 cm and 0.41 cm and lesser saphenous vein is measured between 0.12 cm and 0.42 cm.
--- NOTE | 2017-05-27 10:11 | CP.PCM.PN ---
Subjective - Date & Time of Evaluation Date of Evaluation: 05/27/17 Time of Evaluation: 07:30 - Subjective Subjective: Patient with Diabetes - discussion with - patients current FS are below 180- patient is currently off oral diabetics- is prepared for OR tomorrow Cardiac input noted- Medically-optimized- monitoring vitals currently- no complaints had good food today- sugar went up Objective - Vital Signs/Intake and Output Vital Signs (last 24 hours): Temp Pulse Resp BP Pulse Ox 98.1 F 84 20 147/94 H 97 05/27/17 08:50 05/27/17 08:50 05/27/17 08:50 05/27/17 08:50 05/27/17 08:50 - Medications Medications: Current Medications Vancomycin HCl 500 mg/ Sodium (Chloride) 100 mls @ 100 mls/hr IVPB Q12H [facility] Last Admin: 05/27/17 01:24 Dose: 100 mls/hr Piperacillin Sod/Tazobactam (Sod 3.375 gm/ Sodium Chloride) 100 mls @ 200 mls/ hr IVPB Q8H [facility] Last Admin: 05/27/17 05:19 Dose: 200 mls/hr Lisinopril (Zestril) 20 mg PO DAILY [facility] Pantoprazole Sodium (Protonix Inj) 40 mg IVP DAILY [facility] Rosuvastatin Calcium (Crestor) 10 mg PO HS [facility] Last Admin: 05/26/17 22:13 Dose: 10 mg - Labs Labs: 05/26/17 10:32 05/26/17 10:32 PT 10.9 SECONDS (9.7-12.2) 05/26/17 10:32 INR 1.0 05/26/17 10:32 APTT 33 SECONDS (21-34) 05/26/17 10:32 - Constitutional Appears: Well - Head Exam Head Exam: ATRAUMATIC, NORMOCEPHALIC - Eye Exam Eye Exam: Normal appearance - ENT Exam ENT Exam: Mucous Membranes Moist - Neck Exam Neck Exam: Full ROM. absent: Tenderness - Respiratory Exam Respiratory Exam: Clear to Ausculation Bilateral, NORMAL BREATHING PATTERN - Cardiovascular Exam Cardiovascular Exam: REGULAR RHYTHM - GI/Abdominal Exam GI & Abdominal Exam: Soft, Normal Bowel Sounds. absent: Tenderness - Extremities Exam Extremities Exam: Full ROM (rweak ulses, right big toe gangrene , brownish color (not dark)) - Neurological Exam Neurological Exam: Alert, Awake, Normal Gait, Oriented x3 - Psychiatric Exam Psychiatric exam: Normal Affect, Normal Mood - Skin Skin Exam: Intact (except right big toe ), Normal Color Assessment and Plan - Assessment and Plan (Free Text) Assessment: Patient with Hypertension- controlled repeat BP normal continue same medication Diabetes -off oral hypoglycemic- will accucheck with no coverage for the meantime PAD with right big toe gangrene for bypass tomorro
--- NOTE | 2017-05-27 12:51 | CP.PCM.PN ---
Subjective - Date & Time of Evaluation Date of Evaluation: 05/27/17 Time of Evaluation: 09:00 - Subjective Subjective: events noted for OR in am Objective - Vital Signs/Intake and Output Vital Signs (last 24 hours): Temp Pulse Resp BP Pulse Ox 98.1 F 84 20 147/94 H 97 05/27/17 08:50 05/27/17 08:50 05/27/17 08:50 05/27/17 08:50 05/27/17 08:50 - Medications Medications: Current Medications Vancomycin HCl 500 mg/ Sodium (Chloride) 100 mls @ 100 mls/hr IVPB Q12H [facility] Last Admin: 05/27/17 12:14 Dose: 100 mls/hr Piperacillin Sod/Tazobactam (Sod 3.375 gm/ Sodium Chloride) 100 mls @ 200 mls/ hr IVPB Q8H [facility] Last Admin: 05/27/17 05:19 Dose: 200 mls/hr Lisinopril (Zestril) 20 mg PO DAILY [facility] Last Admin: 05/27/17 11:39 Dose: 20 mg Pantoprazole Sodium (Protonix Inj) 40 mg IVP DAILY [facility] Last Admin: 05/27/17 10:59 Dose: 40 mg Rosuvastatin Calcium (Crestor) 10 mg PO HS [facility] Last Admin: 05/26/17 22:13 Dose: 10 mg - Labs Labs: 05/26/17 10:32 05/26/17 10:32 PT 10.9 SECONDS (9.7-12.2) 05/26/17 10:32 INR 1.0 05/26/17 10:32 APTT 33 SECONDS (21-34) 05/26/17 10:32 - Constitutional Appears: Non-toxic, Chronically Ill - Head Exam Head Exam: NORMOCEPHALIC - Eye Exam Eye Exam: PERRL - ENT Exam ENT Exam: Mucous Membranes Dry - Neck Exam Neck Exam: absent: Lymphadenopathy - Respiratory Exam Respiratory Exam: Decreased Breath Sounds - Cardiovascular Exam Cardiovascular Exam: REGULAR RHYTHM, +S1, +S2 Assessment and Plan - Assessment and Plan (Free Text) Plan: cont iv rx
[2017-05-28] MEDS: Piperacillin/Tazobact 3.375 GM in Sodium Chloride 100 ML IVPB SCH ×3 (04:29→21:00)
--- NOTE | 2017-05-28 11:37 | CP.PCM.PN ---
Subjective - Date & Time of Evaluation Date of Evaluation: 05/28/17 Time of Evaluation: 07:00 - Subjective Subjective: General Surgery Dr. Honeycutt Pt S&E @bedside. RADHAMES, pt c/o abd pain this morning, pain relieved w/ repositioning and abd support. pt denies N/V, F/C, D/C. (+)BM/Flatus. tolerating diet. Objective - Vital Signs/Intake and Output Vital Signs (last 24 hours): Temp Pulse Resp BP Pulse Ox 97.3 F L 74 20 160/84 H 98 05/28/17 07:37 05/28/17 07:37 05/28/17 07:37 05/28/17 07:37 05/28/17 07:37 Intake and Output: 05/28/17 05/28/17 06:59 18:59 Intake Total 200 Balance 200 - Medications Medications: Current Medications Vancomycin HCl 500 mg/ Sodium (Chloride) 100 mls @ 100 mls/hr IVPB Q12H [facility] Last Admin: 05/28/17 01:27 Dose: 100 mls/hr Piperacillin Sod/Tazobactam (Sod 3.375 gm/ Sodium Chloride) 100 mls @ 200 mls/ hr IVPB Q8H [facility] Last Admin: 05/28/17 04:29 Dose: 200 mls/hr Lisinopril (Zestril) 20 mg PO DAILY [facility] Last Admin: 05/28/17 10:15 Dose: 20 mg Pantoprazole Sodium (Protonix Inj) 40 mg IVP DAILY [facility] Last Admin: 05/28/17 10:15 Dose: 40 mg Rosuvastatin Calcium (Crestor) 10 mg PO HS [facility] Last Admin: 05/27/17 22:05 Dose: 10 mg - Labs Labs: 05/26/17 10:32 05/26/17 10:32 PT 10.9 SECONDS (9.7-12.2) 05/26/17 10:32 INR 1.0 05/26/17 10:32 APTT 33 SECONDS (21-34) 05/26/17 10:32 - Constitutional Appears: Non-toxic, No Acute Distress - Head Exam Head Exam: NORMAL INSPECTION - Eye Exam Eye Exam: Normal appearance - ENT Exam ENT Exam: Mucous Membranes Moist - Respiratory Exam Respiratory Exam: NORMAL BREATHING PATTERN. absent: Accessory Muscle Use, Respiratory Distress - Cardiovascular Exam Cardiovascular Exam: absent: Bradycardia, Tachycardia - GI/Abdominal Exam GI & Abdominal Exam: Soft, Tenderness (minimal TTP), Hernia (vental). 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 Nasra Chen DO PGY2
[2017-05-28] MEDS ORDERED: Midazolam 2 MG/2 ML VIAL ONE (13:14)
[2017-05-28] MEDS ORDERED: Propofol 10 mg/ml Inj (20 ML) ONE (13:14)
[2017-05-28] MEDS ORDERED: Rocuronium 10 mg/ml (5 ml) ONE (13:17)
[2017-05-28] MEDS ORDERED: HEPARIN-NS 5,000 UNITS/500 ML 10,000 UNIT/1,000 ML BAG IV ONE (13:28)
[2017-05-28] MEDS ORDERED: Iodixanol 320 MG/ML 200 ML BOTTLE IV ONE ×2 (13:28→13:29)
[2017-05-28] MEDS ORDERED: Lactated Ringer's 1,000 ML IV ONE ×5 (13:30→18:05)
--- NOTE | 2017-05-28 14:14 | CP.PCM.PN ---
Subjective - Date & Time of Evaluation Date of Evaluation: 05/28/17 Time of Evaluation: 00:30 - Subjective Subjective: patient seen- in OR for the plnned surgery- at bedside, patient has no reportd complaint- is aware of plan Objective - Vital Signs/Intake and Output Vital Signs (last 24 hours): Temp Pulse Resp BP Pulse Ox 97.3 F L 74 20 160/84 H 98 05/28/17 07:37 05/28/17 07:37 05/28/17 07:37 05/28/17 07:37 05/28/17 07:37 Intake and Output: 05/28/17 05/28/17 06:59 18:59 Intake Total 200 Balance 200 - Medications Medications: Current Medications Vancomycin HCl 500 mg/ Sodium (Chloride) 100 mls @ 100 mls/hr IVPB Q12H [facility] Last Admin: 05/28/17 01:27 Dose: 100 mls/hr Piperacillin Sod/Tazobactam (Sod 3.375 gm/ Sodium Chloride) 100 mls @ 200 mls/ hr IVPB Q8H [facility] Last Admin: 05/28/17 04:29 Dose: 200 mls/hr Lisinopril (Zestril) 20 mg PO DAILY [facility] Last Admin: 05/28/17 10:15 Dose: 20 mg Pantoprazole Sodium (Protonix Inj) 40 mg IVP DAILY [facility] Last Admin: 05/28/17 10:15 Dose: 40 mg Rosuvastatin Calcium (Crestor) 10 mg PO HS [facility] Last Admin: 05/27/17 22:05 Dose: 10 mg - Labs Labs: 05/26/17 10:32 05/26/17 10:32 PT 10.9 SECONDS (9.7-12.2) 05/26/17 10:32 INR 1.0 05/26/17 10:32 APTT 33 SECONDS (21-34) 05/26/17 10:32 - Constitutional Appears: Well, Non-toxic, No Acute Distress - Head Exam Head Exam: ATRAUMATIC, NORMOCEPHALIC - Eye Exam Eye Exam: absent: Nystagmus - ENT Exam ENT Exam: Mucous Membranes Moist - Neck Exam Neck Exam: Full ROM. absent: Tenderness - Respiratory Exam Respiratory Exam: Clear to Ausculation Bilateral, NORMAL BREATHING PATTERN - Cardiovascular Exam Cardiovascular Exam: REGULAR RHYTHM - GI/Abdominal Exam GI & Abdominal Exam: Soft, Normal Bowel Sounds. absent: Tenderness - Extremities Exam Extremities Exam: Normal Inspection. absent: Pedal Edema (right big toe same brownis gangrene with weak pedal pulses ) - Back Exam Back Exam: absent: tenderness - Neurological Exam Neurological Exam: Alert, Awake, Normal Gait, Oriented x3 - Skin Skin Exam: Intact (other than right big toe ), Normal Color Assessment and Plan - Assessment and Plan (Free Text) Assessment: Patient with DM Hyertension PAD with brown gangrene of right big toe- for bypass today - patient has no complaints aware of plan Discussed with Surgery plan to [place] post op,
[2017-05-28] MEDS ORDERED: Neostigmine Methylsulfate 3mg/3ml Syringe IV ONE (17:34)
--- NOTE | 2017-05-28 17:37 | RAD ---
PROCEDURE: Intraoperative Fluoroscopy. HISTORY: GANGRENE RIGHT FOOT FINDINGS: Fluoroscopic assistance was provided for right lower leg bypass. Total fluoroscopic time (continuous mode) utilized during the procedure: 26.2 seconds.
[2017-05-28] MEDS ORDERED: HYDROmorphone 0.5 mg/0.5 ml ISec IVP PRN ×2 (18:06→18:07)
[2017-05-28] MEDS ORDERED: Oxycodone/Acetaminophen 5/325 mg Tab PO PRN (18:07)
--- NOTE | 2017-05-28 18:10 | PCM.SURG1 ---
Surgeon's Initial Post Op Note - Surgeon's Notes Surgeon: Jason Language Tutor: Toby PGY2, Leticia PGY1 Type of Anesthesia: General Endo Pre-Operative Diagnosis: Peripheral artery disease, DP artery occlusion Operative Findings: see operative report Post-Operative Diagnosis: Peripheral artery disease, DP artery occlusion Operation Performed: Popliteal-DP bypass with Great Saphenous vein graft Specimen/Specimens Removed: N/A Estimated Blood Loss: EBL {In ML}: 500 Blood Products Given: N/A Drains Used: No Drains Post-Op Condition: Good Date of Surgery/Procedure: 05/28/17 Time of Surgery/Procedure: 18:10
[2017-05-28] MEDS ORDERED: Dextrose 5%/0.45% NS 1,000 ML IV SCH (18:45)
[2017-05-28] MEDS: (Novolog) Insulin Aspart, Recombinant 100 u/ml 10 ml vial SC SCH ×2 (19:38→23:00)
[2017-05-28] MEDS ORDERED: Dextrose 5%/0.45% NS 1,000 ML IV ONE (21:30)
[2017-05-28] MEDS: Dextrose 5%/0.45% NS 1,000 ML IV SCH (22:00)
[2017-05-28 23:51] LABS: HEMATOCRIT 27.1 % (35.0-51.0); MEAN CELL VOLUME 91.6 fL (80.0-94.0); MEAN CORPUSCULAR HGB CONC 33.9 g/dL (33.0-37.0); MEAN PLATELET VOLUME 6.9 fL (7.2-11.7); RED CELL DISTRIBUTION WIDTH 12.7 % (11.5-14.5); WHITE BLOOD COUNT 21.6 K/uL (4.8-10.8)
[2017-05-29] MEDS: Dextrose 5%/0.45% NS 1,000 ML IV SCH ×3 (02:40→18:17)
[2017-05-29] MEDS: Piperacillin/Tazobact 3.375 GM in Sodium Chloride 100 ML IVPB SCH ×3 (04:20→21:06)
[2017-05-29 05:44] LABS: BASO % 0.3 % (0.0-2.0); EOS % 0.3 % (0.0-4.0); HEMATOCRIT 29.9 % (35.0-51.0); LYMPH # 1.6 K/uL (1.0-4.3); LYMPH % 13.3 % (20.0-40.0); MEAN CELL VOLUME 92.8 fL (80.0-94.0); MEAN CORPUSCULAR HEMOGLOBIN 31.9 pg (27.0-31.0); MEAN CORPUSCULAR HGB CONC 34.3 g/dL (33.0-37.0); MEAN PLATELET VOLUME 6.7 fL (7.2-11.7); MONO % 8.8 % (0.0-10.0); NRBC % 0.1 % (0.0-2.0); RED CELL DISTRIBUTION WIDTH 13.1 % (11.5-14.5); WHITE BLOOD COUNT 11.8 K/uL (4.8-10.8)
[2017-05-29 05:58] LABS: CHLORIDE 101 mmol/L (98-107); POTASSIUM 4.2 mmol/L (3.6-5.2); SODIUM 136 mmol/L (132-148)
[2017-05-29 06:00] LABS: BILIRUBIN,TOTAL 0.7 mg/dL (0.2-1.3); CARBON DIOXIDE 22 mmol/L (22-30); GFR AFRICAN-AMERICAN > 60
[2017-05-29 06:01] LABS: ALKALINE PHOSPHATASE 26 U/L (38-126); ALT/SGPT 30 U/L (21-72); AST/SGOT 27 U/L (17-59); BLOOD UREA NITROGEN 13 mg/dL (9-20); CALCIUM 7.7 mg/dl (8.6-10.4); GLUCOSE,RANDOM 216 mg/dL (75-110); TOTAL PROTEIN 4.9 g/dL (6.3-8.3)
[2017-05-29 06:02] LABS: MAGNESIUM 1.5 mg/dL (1.6-2.3); PHOSPHOROUS 3.8 mg/dL (2.5-4.5)
[2017-05-29 06:10] LABS: ALB/GLOB RATIO 1.2 (1.0-2.1)
[2017-05-29] MEDS: (Novolog) Insulin Aspart, Recombinant 100 u/ml 10 ml vial SC SCH ×4 (08:05→21:29)
--- NOTE | 2017-05-29 08:49 | CP.PCM.PN ---
Subjective - Date & Time of Evaluation Date of Evaluation: 05/29/17 Time of Evaluation: 07:00 - Subjective Subjective: General Surgery Note for Dr. Gomez Patient seen and examined and in no acute distress. Patient denies N/V/C/D. Patient's pain well controlled. Objective - Vital Signs/Intake and Output Vital Signs (last 24 hours): Temp Pulse Resp BP Pulse Ox 98.0 F 77 14 96/40 L 98 05/29/17 08:00 05/29/17 07:00 05/29/17 07:00 05/29/17 07:00 05/29/17 07:00 Intake and Output: 05/29/17 05/29/17 06:59 18:59 Intake Total 1550 150 Output Total 1235 40 Balance 315 110 - Medications Medications: Current Medications Clopidogrel Bisulfate (Plavix) 75 mg PO DAILY [facility] Famotidine (Pepcid) 20 mg IVP Q12 [facility] Hydromorphone HCl (Dilaudid) 0.5 mg IVP Q4H PRN PRN Reason: Pain, severe (8-10) Vancomycin HCl 500 mg/ Sodium (Chloride) 100 mls @ 100 mls/hr IVPB Q12H [facility] Last Admin: 05/29/17 06:00 Dose: 100 mls/hr Piperacillin Sod/Tazobactam (Sod 3.375 gm/ Sodium Chloride) 100 mls @ 200 mls/ hr IVPB Q8H [facility] Last Admin: 05/29/17 04:20 Dose: 200 mls/hr Dextrose/Sodium Chloride (Dextrose 5%/0.45% Ns 1000 Ml) 1,000 mls @ 150 mls/hr IV .Q6H40M [facility] Last Admin: 05/29/17 02:40 Dose: Not Given Insulin Aspart (Novolog) 0 unit SC ACHS [facility] PRN Reason: Protocol Last Admin: 05/29/17 08:05 Dose: 4 unit Lisinopril (Zestril) 20 mg PO DAILY [facility] Last Admin: 05/28/17 10:15 Dose: 20 mg Oxycodone/Acetaminophen (Percocet 5/325 Mg Tab) 2 tab PO Q4H PRN PRN Reason: Pain, moderate (4-7) Stop: 05/31/17 18:08 Last Admin: 05/29/17 01:35 Dose: 2 tab Rosuvastatin Calcium (Crestor) 10 mg PO HS [facility] Last Admin: 05/28/17 23:00 Dose: 10 mg - Labs Labs: 05/29/17 05:41 05/29/17 05:41 PT 10.9 SECONDS (9.7-12.2) 05/26/17 10:32 INR 1.0 05/26/17 10:32 APTT 33 SECONDS (21-34) 05/26/17 10:32 - Constitutional Appears: Non-toxic, No Acute Distress - Head Exam Head Exam: ATRAUMATIC, NORMAL INSPECTION, NORMOCEPHALIC - Eye Exam Eye Exam: EOMI, Normal appearance - ENT Exam ENT Exam: Mucous Membranes Moist - Respiratory Exam Respiratory Exam: Clear to Ausculation Bilateral, NORMAL BREATHING PATTERN - Cardiovascular Exam Cardiovascular Exam: REGULAR RHYTHM - GI/Abdominal Exam GI & Abdominal Exam: Soft, Normal Bowel Sounds - Extremities Exam Extremities Exam: absent: Pedal Edema Additional comments: RLE - palpable popliteal, palpable DP pulse and pulse on anterior chambers, old poorly healing ulcer to the great toe LLE - palpable popliteal and distal pulses - Neurological Exam Neurological Exam: Alert, Awake, Oriented x3 - Psychiatric Exam Psychiatric exam: Normal Affect, Normal Mood - Skin Skin Exam: Normal Color, Warm Assessment and Plan - Assessment and Plan (Free Text) Assessment: 66yo M w/ worsening RLE PVD Plan: s/p Popliteal-DP bypass with Great Saphenous vein graft, POD 1 - palpable pulses in legs b/l - 05/28: 2 u prbc given - monitor H/H d/w Dr. Gomez
--- NOTE | 2017-05-29 10:19 | OP ---
PROCEDURE DATE: 05/28/2017 PREOPERATIVE DIAGNOSIS: Gangrene of right great toe. PROCEDURE CARRIED OUT: Right popliteal dorsalis pedis bypass using a reverse saphenous vein with intraoperative arteriogram. SURGEON: Issac Gomez Jr., MD TRUCK DRIVER'S OFFSIDER: Dr. Luis and Dr. Kelly, resident. ANESTHESIA ADMINISTERED BY: Rigo Talbert. INDICATIONS: The patient is an older middle-aged [place] man who presents with gangrenous toe. Despite careful foot care and management, his toe has failed to get better. Previously, he had had an angiogram, which showed that there was no significant inflow disease; however, his tibial vessels were all occluded except for his anterior tibial dorsalis pedis, which occluded just above the ankle reconstituted with an incomplete branch of the foot. OPERATIVE FINDINGS: The completion of arteriogram was satisfactory; although, it showed severely diseased outflow vessels. The vein was of marginal quality, but compared to the size of the vessel, it was of adequate size. The completion of arteriogram was satisfactory and as he ended the procedure, he had good pulsations, good Doppler flow etc., through the vessel. DESCRIPTION OF PROCEDURE: The patient was given general anesthesia, intravenous antibiotics, saphenous vein was dissected in the groin just below the knee. After this has been done, the vein was prepared and then dissected out the popliteal artery below the knee, which was satisfactory; although, heavily calcified and we dissected out the dorsalis pedis artery. After these vessels have been dissected out, subcutaneous tunnel was created and the anastomosis was carried out using loop magnification and heparin anticoagulation with tourniquet control. This worked adequately on the distal anastomosis of the foot. However, in the proximal or popliteal anastomosis, the tourniquet control was not adequate and we had to place a small balloon in an attempt to control bleeding and this lead to an excessive blood loss of over 500 mL during the procedure. After the anastomosis have been completed, there was excellent flow. The completion arteriogram was satisfactory and I was satisfied with the results of the operation. The operation carried out was right popliteal dorsalis pedis bypass with reverse saphenous vein with intraoperative arteriogram. Wounds were closed with skin clips and nylon sutures. No drains were left. Issac Gomez Jr., MD CC: Vale Crow MD
--- NOTE | 2017-05-29 12:35 | CP.PCM.PN ---
Subjective - Date & Time of Evaluation Date of Evaluation: 05/29/17 Time of Evaluation: 12:20 - Subjective Subjective: patient seen- in ICU post op- conversant, tolerated feeding discussed DM meds to resume- currently not so much complains, other than post op discomfort Objective - Vital Signs/Intake and Output Vital Signs (last 24 hours): Temp Pulse Resp BP Pulse Ox 98.0 F 94 H 23 119/60 97 05/29/17 08:00 05/29/17 12:00 05/29/17 12:00 05/29/17 12:00 05/29/17 12:00 Intake and Output: 05/29/17 05/29/17 06:59 18:59 Intake Total 1550 1100 Output Total 1235 940 Balance 315 160 - Medications Medications: Current Medications Clopidogrel Bisulfate (Plavix) 75 mg PO DAILY [facility] Last Admin: 05/29/17 09:46 Dose: 75 mg Famotidine (Pepcid) 20 mg IVP Q12 [facility] Last Admin: 05/29/17 09:47 Dose: 20 mg Hydromorphone HCl (Dilaudid) 0.5 mg IVP Q4H PRN PRN Reason: Pain, severe (8-10) Vancomycin HCl 500 mg/ Sodium (Chloride) 100 mls @ 100 mls/hr IVPB Q12H [facility] Last Admin: 05/29/17 06:00 Dose: 100 mls/hr Piperacillin Sod/Tazobactam (Sod 3.375 gm/ Sodium Chloride) 100 mls @ 200 mls/ hr IVPB Q8H [facility] Last Admin: 05/29/17 04:20 Dose: 200 mls/hr Dextrose/Sodium Chloride (Dextrose 5%/0.45% Ns 1000 Ml) 1,000 mls @ 150 mls/hr IV .Q6H40M [facility] Last Admin: 05/29/17 09:19 Dose: 150 mls/hr Insulin Aspart (Novolog) 0 unit SC ACHS [facility] PRN Reason: Protocol Last Admin: 05/29/17 11:43 Dose: 6 unit Lisinopril (Zestril) 20 mg PO DAILY [facility] Last Admin: 05/29/17 09:47 Dose: 20 mg Metformin HCl (Glucophage) 1,000 mg PO DAILY [facility] Oxycodone/Acetaminophen (Percocet 5/325 Mg Tab) 2 tab PO Q4H PRN PRN Reason: Pain, moderate (4-7) Stop: 05/31/17 18:08 Last Admin: 05/29/17 01:35 Dose: 2 tab Rosuvastatin Calcium (Crestor) 10 mg PO HS [facility] Last Admin: 05/28/17 23:00 Dose: 10 mg - Labs Labs: 05/29/17 05:41 05/29/17 05:41 PT 10.9 SECONDS (9.7-12.2) 05/26/17 10:32 INR 1.0 05/26/17 10:32 APTT 33 SECONDS (21-34) 05/26/17 10:32 - Constitutional Appears: Non-toxic - Head Exam Head Exam: ATRAUMATIC, NORMOCEPHALIC - Eye Exam Eye Exam: Normal appearance. absent: Nystagmus - ENT Exam ENT Exam: Mucous Membranes Moist - Neck Exam Neck Exam: Full ROM. absent: Tenderness - Respiratory Exam Respiratory Exam: Clear to Ausculation Bilateral, NORMAL BREATHING PATTERN - Cardiovascular Exam Cardiovascular Exam: REGULAR RHYTHM - Extremities Exam Extremities Exam: Full ROM (post bypass) - Back Exam Back Exam: absent: tenderness - Neurological Exam Neurological Exam: Alert, Awake, Oriented x3 - Psychiatric Exam Psychiatric exam: Normal Affect, Normal Mood - Skin Skin Exam: Normal Color Assessment and Plan - Assessment and Plan (Free Text) Assessment: Patient with DM Hypertension with PAD post popliteal bypass, on monitoring Plavix resumed on feeding DM meds to resume and monitor and adjust meds accordingly Hypertension- stable Mild anemia noted post op- no current bleeding - to monitor
--- NOTE | 2017-05-29 18:53 | CP.PCM.PN ---
Subjective - Date & Time of Evaluation Date of Evaluation: 05/29/17 Time of Evaluation: 08:00 - Subjective Subjective: Patient seen and examined and in no acute distress. Patient denies N/V/C/D. Patient's pain well controlled. Objective - Vital Signs/Intake and Output Vital Signs (last 24 hours): Temp Pulse Resp BP Pulse Ox 98.0 F 101 H 22 126/72 99 05/29/17 08:00 05/29/17 17:00 05/29/17 17:00 05/29/17 17:00 05/29/17 17:00 Intake and Output: 05/29/17 05/29/17 06:59 18:59 Intake Total 1550 2300 Output Total 1235 2590 Balance 315 -290 - Medications Medications: Current Medications Clopidogrel Bisulfate (Plavix) 75 mg PO DAILY [facility] Last Admin: 05/29/17 09:46 Dose: 75 mg Famotidine (Pepcid) 20 mg IVP Q12 [facility] Last Admin: 05/29/17 09:47 Dose: 20 mg Heparin Sodium (Porcine) (Heparin) 5,000 units SC Q12 [facility] Hydromorphone HCl (Dilaudid) 0.5 mg IVP Q4H PRN PRN Reason: Pain, severe (8-10) Vancomycin HCl 500 mg/ Sodium (Chloride) 100 mls @ 100 mls/hr IVPB Q12H [facility] Last Admin: 05/29/17 14:33 Dose: 100 mls/hr Piperacillin Sod/Tazobactam (Sod 3.375 gm/ Sodium Chloride) 100 mls @ 200 mls/ hr IVPB Q8H [facility] Last Admin: 05/29/17 12:41 Dose: 200 mls/hr Dextrose/Sodium Chloride (Dextrose 5%/0.45% Ns 1000 Ml) 1,000 mls @ 150 mls/hr IV .Q6H40M [facility] Last Admin: 05/29/17 18:17 Dose: 150 mls/hr Insulin Aspart (Novolog) 0 unit SC ACHS [facility] PRN Reason: Protocol Last Admin: 05/29/17 17:07 Dose: 6 unit Lisinopril (Zestril) 20 mg PO DAILY [facility] Last Admin: 05/29/17 09:47 Dose: 20 mg Metformin HCl (Glucophage) 1,000 mg PO DAILY [facility] Last Admin: 05/29/17 12:37 Dose: 1,000 mg Oxycodone/Acetaminophen (Percocet 5/325 Mg Tab) 2 tab PO Q4H PRN PRN Reason: Pain, moderate (4-7) Stop: 05/31/17 18:08 Last Admin: 05/29/17 01:35 Dose: 2 tab Rosuvastatin Calcium (Crestor) 10 mg PO HS [facility] Last Admin: 05/28/17 23:00 Dose: 10 mg - Labs Labs: 05/29/17 05:41 05/29/17 05:41 PT 10.9 SECONDS (9.7-12.2) 05/26/17 10:32 INR 1.0 05/26/17 10:32 APTT 33 SECONDS (21-34) 05/26/17 10:32 - Constitutional Appears: Non-toxic, Chronically Ill - Head Exam Head Exam: NORMOCEPHALIC - Eye Exam Eye Exam: PERRL - ENT Exam ENT Exam: Mucous Membranes Dry - Neck Exam Neck Exam: absent: Lymphadenopathy - Respiratory Exam Respiratory Exam: Decreased Breath Sounds - Cardiovascular Exam Cardiovascular Exam: REGULAR RHYTHM - GI/Abdominal Exam GI & Abdominal Exam: Distended, Soft - Rectal Exam Rectal Exam: Deferred Assessment and Plan (1) Insulin dependent type 2 diabetes mellitus Status: Acute (2) Ulcer of foot Status: Acute
--- NOTE | 2017-05-29 21:04 | CP.PCM.PN ---
Subjective - Date & Time of Evaluation Date of Evaluation: 05/27/17 Time of Evaluation: 08:00 - Subjective Subjective: Patient seen and evaluated For surgery tomorrow Objective - Vital Signs/Intake and Output Vital Signs (last 24 hours): Temp Pulse Resp BP Pulse Ox 98.5 F 134 H 30 H 140/84 99 05/29/17 16:00 05/29/17 18:30 05/29/17 18:30 05/29/17 18:30 05/29/17 18:30 Intake and Output: 05/29/17 05/30/17 18:59 06:59 Intake Total 2450 150 Output Total 2690 150 Balance -240 0 - Medications Medications: Current Medications Clopidogrel Bisulfate (Plavix) 75 mg PO DAILY [facility] Last Admin: 05/29/17 09:46 Dose: 75 mg Famotidine (Pepcid) 20 mg IVP Q12 [facility] Last Admin: 05/29/17 09:47 Dose: 20 mg Heparin Sodium (Porcine) (Heparin) 5,000 units SC Q12 [facility] Hydromorphone HCl (Dilaudid) 0.5 mg IVP Q4H PRN PRN Reason: Pain, severe (8-10) Vancomycin HCl 500 mg/ Sodium (Chloride) 100 mls @ 100 mls/hr IVPB Q12H [facility] Last Admin: 05/29/17 14:33 Dose: 100 mls/hr Piperacillin Sod/Tazobactam (Sod 3.375 gm/ Sodium Chloride) 100 mls @ 200 mls/ hr IVPB Q8H [facility] Last Admin: 05/29/17 12:41 Dose: 200 mls/hr Insulin Aspart (Novolog) 0 unit SC ACHS [facility] PRN Reason: Protocol Last Admin: 05/29/17 17:07 Dose: 6 unit Lisinopril (Zestril) 20 mg PO DAILY [facility] Last Admin: 05/29/17 09:47 Dose: 20 mg Metformin HCl (Glucophage) 1,000 mg PO DAILY [facility] Last Admin: 05/29/17 12:37 Dose: 1,000 mg Oxycodone/Acetaminophen (Percocet 5/325 Mg Tab) 2 tab PO Q4H PRN PRN Reason: Pain, moderate (4-7) Stop: 05/31/17 18:08 Last Admin: 05/29/17 01:35 Dose: 2 tab Rosuvastatin Calcium (Crestor) 10 mg PO HS [facility] Last Admin: 05/28/17 23:00 Dose: 10 mg - Labs Labs: 05/29/17 05:41 05/29/17 05:41 PT 10.9 SECONDS (9.7-12.2) 05/26/17 10:32 INR 1.0 05/26/17 10:32 APTT 33 SECONDS (21-34) 05/26/17 10:32
--- NOTE | 2017-05-29 21:06 | CP.PCM.PN ---
Subjective - Date & Time of Evaluation Date of Evaluation: 05/28/17 Time of Evaluation: 19:20 - Subjective Subjective: Patient s/p Vascular Bypass In ICU Hemodynamically stable Critical care time 35 minutes Objective - Vital Signs/Intake and Output Vital Signs (last 24 hours): Temp Pulse Resp BP Pulse Ox 98.5 F 134 H 30 H 140/84 99 05/29/17 16:00 05/29/17 18:30 05/29/17 18:30 05/29/17 18:30 05/29/17 18:30 Intake and Output: 05/29/17 05/30/17 18:59 06:59 Intake Total 2450 150 Output Total 2690 150 Balance -240 0 - Medications Medications: Current Medications Clopidogrel Bisulfate (Plavix) 75 mg PO DAILY [facility] Last Admin: 05/29/17 09:46 Dose: 75 mg Famotidine (Pepcid) 20 mg IVP Q12 [facility] Last Admin: 05/29/17 09:47 Dose: 20 mg Heparin Sodium (Porcine) (Heparin) 5,000 units SC Q12 [facility] Hydromorphone HCl (Dilaudid) 0.5 mg IVP Q4H PRN PRN Reason: Pain, severe (8-10) Vancomycin HCl 500 mg/ Sodium (Chloride) 100 mls @ 100 mls/hr IVPB Q12H [facility] Last Admin: 05/29/17 14:33 Dose: 100 mls/hr Piperacillin Sod/Tazobactam (Sod 3.375 gm/ Sodium Chloride) 100 mls @ 200 mls/ hr IVPB Q8H [facility] Last Admin: 05/29/17 12:41 Dose: 200 mls/hr Insulin Aspart (Novolog) 0 unit SC ACHS [facility] PRN Reason: Protocol Last Admin: 05/29/17 17:07 Dose: 6 unit Lisinopril (Zestril) 20 mg PO DAILY [facility] Last Admin: 05/29/17 09:47 Dose: 20 mg Metformin HCl (Glucophage) 1,000 mg PO DAILY [facility] Last Admin: 05/29/17 12:37 Dose: 1,000 mg Oxycodone/Acetaminophen (Percocet 5/325 Mg Tab) 2 tab PO Q4H PRN PRN Reason: Pain, moderate (4-7) Stop: 05/31/17 18:08 Last Admin: 05/29/17 01:35 Dose: 2 tab Rosuvastatin Calcium (Crestor) 10 mg PO HS [facility] Last Admin: 05/28/17 23:00 Dose: 10 mg - Labs Labs: 05/29/17 05:41 05/29/17 05:41 PT 10.9 SECONDS (9.7-12.2) 05/26/17 10:32 INR 1.0 05/26/17 10:32 APTT 33 SECONDS (21-34) 05/26/17 10:32
--- NOTE | 2017-05-29 21:07 | CP.PCM.PN ---
Subjective - Date & Time of Evaluation Date of Evaluation: 05/29/17 Time of Evaluation: 07:30 - Subjective Subjective: Patient seen and evaluated Not in distress Objective - Vital Signs/Intake and Output Vital Signs (last 24 hours): Temp Pulse Resp BP Pulse Ox 98.5 F 134 H 30 H 140/84 99 05/29/17 16:00 05/29/17 18:30 05/29/17 18:30 05/29/17 18:30 05/29/17 18:30 Intake and Output: 05/29/17 05/30/17 18:59 06:59 Intake Total 2450 150 Output Total 2690 150 Balance -240 0 - Medications Medications: Current Medications Clopidogrel Bisulfate (Plavix) 75 mg PO DAILY [facility] Last Admin: 05/29/17 09:46 Dose: 75 mg Famotidine (Pepcid) 20 mg IVP Q12 [facility] Last Admin: 05/29/17 09:47 Dose: 20 mg Heparin Sodium (Porcine) (Heparin) 5,000 units SC Q12 [facility] Hydromorphone HCl (Dilaudid) 0.5 mg IVP Q4H PRN PRN Reason: Pain, severe (8-10) Vancomycin HCl 500 mg/ Sodium (Chloride) 100 mls @ 100 mls/hr IVPB Q12H [facility] Last Admin: 05/29/17 14:33 Dose: 100 mls/hr Piperacillin Sod/Tazobactam (Sod 3.375 gm/ Sodium Chloride) 100 mls @ 200 mls/ hr IVPB Q8H [facility] Last Admin: 05/29/17 21:06 Dose: 200 mls/hr Insulin Aspart (Novolog) 0 unit SC ACHS [facility] PRN Reason: Protocol Last Admin: 05/29/17 17:07 Dose: 6 unit Lisinopril (Zestril) 20 mg PO DAILY [facility] Last Admin: 05/29/17 09:47 Dose: 20 mg Metformin HCl (Glucophage) 1,000 mg PO DAILY [facility] Last Admin: 05/29/17 12:37 Dose: 1,000 mg Oxycodone/Acetaminophen (Percocet 5/325 Mg Tab) 2 tab PO Q4H PRN PRN Reason: Pain, moderate (4-7) Stop: 05/31/17 18:08 Last Admin: 05/29/17 01:35 Dose: 2 tab Rosuvastatin Calcium (Crestor) 10 mg PO HS [facility] Last Admin: 05/28/17 23:00 Dose: 10 mg - Labs Labs: 05/29/17 05:41 05/29/17 05:41 PT 10.9 SECONDS (9.7-12.2) 05/26/17 10:32 INR 1.0 05/26/17 10:32 APTT 33 SECONDS (21-34) 05/26/17 10:32
[2017-05-30] MEDS: Piperacillin/Tazobact 3.375 GM in Sodium Chloride 100 ML IVPB SCH ×2 (05:58→12:16)
[2017-05-30 06:44] LABS: CHLORIDE 103 mmol/L (98-107); POTASSIUM 4.2 mmol/L (3.6-5.2); SODIUM 135 mmol/L (132-148)
[2017-05-30 06:47] LABS: ALB/GLOB RATIO 1.4 (1.0-2.1); ALKALINE PHOSPHATASE 28 U/L (38-126); ALT/SGPT 27 U/L (21-72); AST/SGOT 25 U/L (17-59); BILIRUBIN,TOTAL 0.6 mg/dL (0.2-1.3); BLOOD UREA NITROGEN 12 mg/dL (9-20); CALCIUM 8.6 mg/dl (8.6-10.4); CARBON DIOXIDE 21 mmol/L (22-30); GFR AFRICAN-AMERICAN > 60; GLUCOSE,RANDOM 199 mg/dL (75-110); TOTAL PROTEIN 5.7 g/dL (6.3-8.3)
[2017-05-30 08:06] LABS: BASO # 0.1 K/uL (0.0-0.2); BASO % 0.4 % (0.0-2.0); EOS # 0.1 K/uL (0.0-0.7); EOS % 0.7 % (0.0-4.0); HEMATOCRIT 29.5 % (35.0-51.0); LYMPH # 1.4 K/uL (1.0-4.3); LYMPH % 10.7 % (20.0-40.0); MEAN CELL VOLUME 92.5 fL (80.0-94.0); MEAN CORPUSCULAR HEMOGLOBIN 31.4 pg (27.0-31.0); MEAN PLATELET VOLUME 6.5 fL (7.2-11.7); MONO % 8.2 % (0.0-10.0); RED CELL DISTRIBUTION WIDTH 13.1 % (11.5-14.5); WHITE BLOOD COUNT 12.6 K/uL (4.8-10.8)
--- NOTE | 2017-05-30 08:18 | CP.PCM.PN ---
Subjective - Date & Time of Evaluation Date of Evaluation: 05/30/17 Time of Evaluation: 07:00 - Subjective Subjective: General Surgery Note for Dr. Gomez Patient seen and examined and in no acute distress. Patient denies N/V/C/D. Patient's denies any pain in his left leg. Objective - Vital Signs/Intake and Output Vital Signs (last 24 hours): Temp Pulse Resp BP Pulse Ox 98.5 F 98 H 22 156/79 H 96 05/30/17 04:00 05/30/17 07:01 05/30/17 07:01 05/30/17 07:01 05/30/17 07:01 Intake and Output: 05/30/17 05/30/17 06:59 18:59 Intake Total 150 600 Output Total 150 700 Balance 0 -100 - Medications Medications: Current Medications Clopidogrel Bisulfate (Plavix) 75 mg PO DAILY [facility] Last Admin: 05/29/17 09:46 Dose: 75 mg Famotidine (Pepcid) 20 mg IVP Q12 [facility] Last Admin: 05/29/17 21:36 Dose: 20 mg Heparin Sodium (Porcine) (Heparin) 5,000 units SC Q12 [facility] Last Admin: 05/29/17 21:36 Dose: 5,000 units Hydromorphone HCl (Dilaudid) 0.5 mg IVP Q4H PRN PRN Reason: Pain, severe (8-10) Vancomycin HCl 500 mg/ Sodium (Chloride) 100 mls @ 100 mls/hr IVPB Q12H [facility] Last Admin: 05/30/17 00:17 Dose: 100 mls/hr Piperacillin Sod/Tazobactam (Sod 3.375 gm/ Sodium Chloride) 100 mls @ 200 mls/ hr IVPB Q8H [facility] Last Admin: 05/30/17 05:58 Dose: 200 mls/hr Insulin Aspart (Novolog) 0 unit SC ACHS [facility] PRN Reason: Protocol Last Admin: 05/29/17 21:29 Dose: Not Given Insulin Glargine (Lantus) 10 unit SC DAILY [facility] Lisinopril (Zestril) 20 mg PO DAILY [facility] Last Admin: 05/29/17 09:47 Dose: 20 mg Metformin HCl (Glucophage) 1,000 mg PO DAILY [facility] Last Admin: 05/29/17 12:37 Dose: 1,000 mg Oxycodone/Acetaminophen (Percocet 5/325 Mg Tab) 2 tab PO Q4H PRN PRN Reason: Pain, moderate (4-7) Stop: 05/31/17 18:08 Last Admin: 05/29/17 01:35 Dose: 2 tab Rosuvastatin Calcium (Crestor) 10 mg PO HS [facility] Last Admin: 05/29/17 21:36 Dose: 10 mg - Labs Labs: 05/30/17 08:00 05/30/17 06:24 PT 10.9 SECONDS (9.7-12.2) 05/26/17 10:32 INR 1.0 05/26/17 10:32 APTT 33 SECONDS (21-34) 05/26/17 10:32 - Constitutional Appears: Non-toxic, No Acute Distress - Head Exam Head Exam: ATRAUMATIC, NORMAL INSPECTION, NORMOCEPHALIC - Eye Exam Eye Exam: EOMI, Normal appearance - ENT Exam ENT Exam: Mucous Membranes Moist - Respiratory Exam Respiratory Exam: Clear to Ausculation Bilateral, NORMAL BREATHING PATTERN. absent: Respiratory Distress - Cardiovascular Exam Cardiovascular Exam: REGULAR RHYTHM - GI/Abdominal Exam GI & Abdominal Exam: Soft. absent: Tenderness - Extremities Exam Extremities Exam: Normal Inspection. absent: Pedal Edema Additional comments: RLE - minimally palpable popliteal and DP pulse, popliteal and dp pulse strong on doppler pulse on anterior chambers palpable, old poorly healing ulcer to the great toe LLE - palpable popliteal and distal pulses - Neurological Exam Neurological Exam: Alert, Awake, Oriented x3 - Psychiatric Exam Psychiatric exam: Normal Affect, Normal Mood - Skin Skin Exam: Intact, Normal Color, Warm Assessment and Plan - Assessment and Plan (Free Text) Assessment: 66yo M s/p Popliteal-DP bypass with Great Saphenous vein graft, POD 2 Plan: - palpable pulses in legs b/l - 05/28: 2 u prbc given - monitor H/H, stable -medical management as per primary d/w Dr. Gomez
[2017-05-30] MEDS: (Novolog) Insulin Aspart, Recombinant 100 u/ml 10 ml vial SC SCH ×4 (08:24→21:23)
--- NOTE | 2017-05-30 08:30 | CP.PCM.PN ---
Subjective - Date & Time of Evaluation Date of Evaluation: 05/30/17 Time of Evaluation: 09:00 - Subjective Subjective: Patient seen- in ICU was notified he can be sandra=ansferred to the floor Currently patient is on 1800 ADA has good appetite Sugar trend noted to be high , will adjust Dm meds as discussed no complaints no BM yet urination good post catheter Objective - Vital Signs/Intake and Output Vital Signs (last 24 hours): Temp Pulse Resp BP Pulse Ox 98.5 F 98 H 22 156/79 H 96 05/30/17 04:00 05/30/17 07:01 05/30/17 07:01 05/30/17 07:01 05/30/17 07:01 Intake and Output: 05/30/17 05/30/17 06:59 18:59 Intake Total 150 600 Output Total 150 700 Balance 0 -100 - Medications Medications: Current Medications Clopidogrel Bisulfate (Plavix) 75 mg PO DAILY [facility] Last Admin: 05/29/17 09:46 Dose: 75 mg Famotidine (Pepcid) 20 mg IVP Q12 [facility] Last Admin: 05/29/17 21:36 Dose: 20 mg Heparin Sodium (Porcine) (Heparin) 5,000 units SC Q12 [facility] Last Admin: 05/29/17 21:36 Dose: 5,000 units Hydromorphone HCl (Dilaudid) 0.5 mg IVP Q4H PRN PRN Reason: Pain, severe (8-10) Vancomycin HCl 500 mg/ Sodium (Chloride) 100 mls @ 100 mls/hr IVPB Q12H [facility] Last Admin: 05/30/17 00:17 Dose: 100 mls/hr Piperacillin Sod/Tazobactam (Sod 3.375 gm/ Sodium Chloride) 100 mls @ 200 mls/ hr IVPB Q8H [facility] Last Admin: 05/30/17 05:58 Dose: 200 mls/hr Insulin Aspart (Novolog) 0 unit SC ACHS [facility] PRN Reason: Protocol Last Admin: 05/30/17 08:24 Dose: 4 unit Insulin Glargine (Lantus) 10 unit SC DAILY [facility] Lisinopril (Zestril) 20 mg PO DAILY [facility] Last Admin: 05/29/17 09:47 Dose: 20 mg Metformin HCl (Glucophage) 1,000 mg PO DAILY [facility] Last Admin: 05/29/17 12:37 Dose: 1,000 mg Oxycodone/Acetaminophen (Percocet 5/325 Mg Tab) 2 tab PO Q4H PRN PRN Reason: Pain, moderate (4-7) Stop: 05/31/17 18:08 Last Admin: 05/29/17 01:35 Dose: 2 tab Rosuvastatin Calcium (Crestor) 10 mg PO HS [facility] Last Admin: 05/29/17 21:36 Dose: 10 mg - Labs Labs: 05/30/17 08:00 05/30/17 06:24 PT 10.9 SECONDS (9.7-12.2) 05/26/17 10:32 INR 1.0 05/26/17 10:32 APTT 33 SECONDS (21-34) 05/26/17 10:32 - Constitutional Appears: Well, Non-toxic - Head Exam Head Exam: ATRAUMATIC, NORMOCEPHALIC - Eye Exam Eye Exam: Normal appearance. absent: Nystagmus - ENT Exam ENT Exam: Mucous Membranes Moist - Neck Exam Neck Exam: Full ROM. absent: Tenderness - Respiratory Exam Respiratory Exam: Clear to Ausculation Bilateral - Cardiovascular Exam Cardiovascular Exam: REGULAR RHYTHM - GI/Abdominal Exam GI & Abdominal Exam: Soft, Normal Bowel Sounds. absent: Tenderness - Extremities Exam Extremities Exam: Full ROM ( except for th right post op- avoiding mobility , right leg post op no bleeding , no unusual swelling ) - Back Exam Back Exam: absent: tenderness - Neurological Exam Neurological Exam: Alert, Awake, Oriented x3 - Psychiatric Exam Psychiatric exam: Normal Affect, Normal Mood - Skin Skin Exam: Normal Color Assessment and Plan - Assessment and Plan (Free Text) Assessment: Patient with IDDM_ with PO feeding noted increase in sugar level- adjust medicatin on 1800ADA Post op for politeal bypass right - no unusual event Hypertension- monitoring plan for transfer to the floor and PT accordingly
[2017-05-30] MEDS: (Lantus) Insulin Glargine, Recombinant SC SCH (10:27)
[2017-05-30 12:02] VITALS: RESP 20
--- NOTE | 2017-05-30 23:03 | CP.PCM.PN ---
Subjective - Date & Time of Evaluation Date of Evaluation: 05/30/17 Time of Evaluation: 07:30 - Subjective Subjective: Patient seen and evaluated Denoes chest pain and dyspnea S/P Vascular bypass Objective - Vital Signs/Intake and Output Vital Signs (last 24 hours): Temp Pulse Resp BP Pulse Ox 99.0 F 103 H 20 144/77 98 05/30/17 15:06 05/30/17 15:06 05/30/17 15:06 05/30/17 15:06 05/30/17 15:06 Intake and Output: 05/30/17 05/31/17 18:59 06:59 Intake Total 600 240 Output Total 700 600 Balance -100 -360 - Medications Medications: Current Medications Clopidogrel Bisulfate (Plavix) 75 mg PO DAILY [facility] Last Admin: 05/30/17 10:27 Dose: 75 mg Famotidine (Pepcid) 20 mg IVP Q12 [facility] Last Admin: 05/30/17 21:07 Dose: 20 mg Heparin Sodium (Porcine) (Heparin) 5,000 units SC Q12 [facility] Last Admin: 05/30/17 21:07 Dose: 5,000 units Hydromorphone HCl (Dilaudid) 0.5 mg IVP Q4H PRN PRN Reason: Pain, severe (8-10) Insulin Aspart (Novolog) 0 unit SC ACHS [facility] PRN Reason: Protocol Last Admin: 05/30/17 21:23 Dose: Not Given Insulin Glargine (Lantus) 10 unit SC DAILY [facility] Last Admin: 05/30/17 10:27 Dose: 10 u Lisinopril (Zestril) 20 mg PO DAILY [facility] Last Admin: 05/30/17 10:27 Dose: 20 mg Metformin HCl (Glucophage) 1,000 mg PO BID [facility] Last Admin: 05/30/17 17:47 Dose: 1,000 mg Oxycodone/Acetaminophen (Percocet 5/325 Mg Tab) 2 tab PO Q4H PRN PRN Reason: Pain, moderate (4-7) Stop: 05/31/17 18:08 Last Admin: 05/29/17 01:35 Dose: 2 tab Rosuvastatin Calcium (Crestor) 10 mg PO HS [facility] Last Admin: 05/30/17 21:20 Dose: 10 mg - Labs Labs: 05/30/17 08:00 05/30/17 06:24 PT 10.9 SECONDS (9.7-12.2) 05/26/17 10:32 INR 1.0 05/26/17 10:32 APTT 33 SECONDS (21-34) 05/26/17 10:32
[2017-05-31 01:20] VITALS: O2SAT 97
--- NOTE | 2017-05-31 07:03 | CP.PCM.PN ---
Subjective - Date & Time of Evaluation Date of Evaluation: 05/31/17 Time of Evaluation: 07:00 - Subjective Subjective: Vasc Sx: Dr Gomez Pt S&E. RADHAMES. Was transferred to med/surg yesterday. Has been OOB and ambulating both with PT and independently. Very minimal pain at incision site, no pain in feet. Denies N/V, F/C, SOB or CP. Objective - Vital Signs/Intake and Output Vital Signs (last 24 hours): Temp Pulse Resp BP Pulse Ox 98.7 F 107 H 20 133/71 97 05/30/17 23:20 05/30/17 23:20 05/30/17 23:20 05/30/17 23:20 05/30/17 23:20 Intake and Output: 05/31/17 05/31/17 06:59 18:59 Intake Total 440 Output Total 1450 Balance -1010 - Medications Medications: Current Medications Clopidogrel Bisulfate (Plavix) 75 mg PO DAILY [facility] Last Admin: 05/30/17 10:27 Dose: 75 mg Famotidine (Pepcid) 20 mg IVP Q12 [facility] Last Admin: 05/30/17 21:07 Dose: 20 mg Heparin Sodium (Porcine) (Heparin) 5,000 units SC Q12 [facility] Last Admin: 05/30/17 21:07 Dose: 5,000 units Hydromorphone HCl (Dilaudid) 0.5 mg IVP Q4H PRN PRN Reason: Pain, severe (8-10) Insulin Aspart (Novolog) 0 unit SC ACHS [facility] PRN Reason: Protocol Last Admin: 05/30/17 21:23 Dose: Not Given Insulin Glargine (Lantus) 10 unit SC DAILY [facility] Last Admin: 05/30/17 10:27 Dose: 10 u Lisinopril (Zestril) 20 mg PO DAILY [facility] Last Admin: 05/30/17 10:27 Dose: 20 mg Metformin HCl (Glucophage) 1,000 mg PO BID [facility] Last Admin: 05/30/17 17:47 Dose: 1,000 mg Oxycodone/Acetaminophen (Percocet 5/325 Mg Tab) 2 tab PO Q4H PRN PRN Reason: Pain, moderate (4-7) Stop: 05/31/17 18:08 Last Admin: 05/29/17 01:35 Dose: 2 tab Rosuvastatin Calcium (Crestor) 10 mg PO HS [facility] Last Admin: 05/30/17 21:20 Dose: 10 mg - Labs Labs: 05/30/17 08:00 05/30/17 06:24 PT 10.9 SECONDS (9.7-12.2) 05/26/17 10:32 INR 1.0 05/26/17 10:32 APTT 33 SECONDS (21-34) 05/26/17 10:32 - Constitutional Appears: Non-toxic, No Acute Distress - Respiratory Exam Respiratory Exam: absent: Accessory Muscle Use, Respiratory Distress - Cardiovascular Exam Cardiovascular Exam: REGULAR RHYTHM. absent: Tachycardia - GI/Abdominal Exam GI & Abdominal Exam: Soft. absent: Distended, Tenderness - Extremities Exam Additional comments: palpable pulses distally, dressing c/d/i - Neurological Exam Neurological Exam: Alert, Awake, Oriented x3 - Psychiatric Exam Psychiatric exam: Normal Affect, Normal Mood - Skin Skin Exam: Normal Color, Warm Assessment and Plan - Assessment and Plan (Free Text) Assessment: 66M POD#3 s/p pop-DP bypass of RLE Plan: Pt doing very well post-op Can plan for discharge today with outpatient follow up next week in Dr Gomez' s office will confirm with Dr Gomez this morning Donte, PGY3
[2017-05-31] MEDS: (Novolog) Insulin Aspart, Recombinant 100 u/ml 10 ml vial SC SCH ×2 (08:33→12:17)
[2017-05-31 08:34] VITALS: BP 134/81; PULSE 92; TEMP 98
[2017-05-31] MEDS: (Lantus) Insulin Glargine, Recombinant SC SCH (09:25)
--- NOTE | 2017-05-31 14:04 | CP.PCM.PN ---
Subjective - Date & Time of Evaluation Date of Evaluation: 05/31/17 Time of Evaluation: 02:30 - Subjective Subjective: Communication with Vascular surgeon- Patient has no complaint other than the post op symptoms aware of plan aware of his medications Objective - Vital Signs/Intake and Output Vital Signs (last 24 hours): Temp Pulse Resp BP Pulse Ox 98.0 F 92 H 20 134/81 97 05/31/17 07:00 05/31/17 07:00 05/31/17 07:00 05/31/17 07:00 05/31/17 07:00 Intake and Output: 05/31/17 05/31/17 06:59 18:59 Intake Total 440 Output Total 1450 Balance -1010 - Medications Medications: Current Medications Clopidogrel Bisulfate (Plavix) 75 mg PO DAILY [facility] Last Admin: 05/31/17 09:24 Dose: 75 mg Famotidine (Pepcid) 20 mg IVP Q12 [facility] Last Admin: 05/31/17 09:25 Dose: 20 mg Heparin Sodium (Porcine) (Heparin) 5,000 units SC Q12 [facility] Last Admin: 05/31/17 09:25 Dose: 5,000 units Hydromorphone HCl (Dilaudid) 0.5 mg IVP Q4H PRN PRN Reason: Pain, severe (8-10) Insulin Aspart (Novolog) 0 unit SC ACHS [facility] PRN Reason: Protocol Last Admin: 05/31/17 12:17 Dose: 1 unit Insulin Glargine (Lantus) 10 unit SC DAILY [facility] Last Admin: 05/31/17 09:25 Dose: 10 u Lisinopril (Zestril) 20 mg PO DAILY [facility] Last Admin: 05/31/17 09:24 Dose: 20 mg Metformin HCl (Glucophage) 1,000 mg PO BID [facility] Last Admin: 05/31/17 09:24 Dose: 1,000 mg Oxycodone/Acetaminophen (Percocet 5/325 Mg Tab) 2 tab PO Q4H PRN PRN Reason: Pain, moderate (4-7) Stop: 05/31/17 18:08 Last Admin: 05/29/17 01:35 Dose: 2 tab Rosuvastatin Calcium (Crestor) 10 mg PO HS [facility] Last Admin: 05/30/17 21:20 Dose: 10 mg - Labs Labs: 05/30/17 08:00 05/30/17 06:24 PT 10.9 SECONDS (9.7-12.2) 05/26/17 10:32 INR 1.0 05/26/17 10:32 APTT 33 SECONDS (21-34) 05/26/17 10:32 - Constitutional Appears: Well, Non-toxic - Head Exam Head Exam: ATRAUMATIC, NORMOCEPHALIC - Eye Exam Eye Exam: Normal appearance - ENT Exam ENT Exam: Mucous Membranes Moist - Respiratory Exam Respiratory Exam: Clear to Ausculation Bilateral, NORMAL BREATHING PATTERN - Cardiovascular Exam Cardiovascular Exam: REGULAR RHYTHM - GI/Abdominal Exam GI & Abdominal Exam: Soft, Normal Bowel Sounds. absent: Tenderness - Extremities Exam Extremities Exam: Joint Swelling (right foot post op bandaged ) - Back Exam Back Exam: absent: tenderness - Neurological Exam Neurological Exam: Alert, Awake, Normal Gait, Oriented x3 - Psychiatric Exam Psychiatric exam: Normal Affect, Normal Mood - Skin Skin Exam: Intact, Normal Color Assessment and Plan - Assessment and Plan (Free Text) Plan: Patient with diabetes, Hypertension admitted for PAD with popliteal bypass- with no unususal symptoms- cleared by surgery to go home has follow up with surgery on friday and friday with my clinic to resume all home meds
--- NOTE | 2017-05-31 14:53 | CP.PCM.DIS ---
Provider - Provider Date of Admission: 05/26/17 11:00 Attending physician: Vale Crow MD Time Spent in preparation of Discharge (in minutes): 30 Hospital Course - Lab Results Lab Results: Micro Results 05/28/17 22:35 Naris MRSA Culture (Admit) - Final MRSA NOT DETECTED 05/26/17 13:00 Foot - Left Gram Stain - Final 05/26/17 13:00 Foot - Left Wound Culture - Final Staphylococcus Aureus Most Recent Lab Values WBC 12.6 K/uL (4.8-10.8) H 05/30/17 08:00 RBC 3.19 Mil/uL (4.40-5.90) L 05/30/17 08:00 Hgb 10.0 g/dL (12.0-18.0) L 05/30/17 08:00 Hct 29.5 % (35.0-51.0) L 05/30/17 08:00 MCV 92.5 fL (80.0-94.0) 05/30/17 08:00 MCH 31.4 pg (27.0-31.0) H 05/30/17 08:00 MCHC 34.0 g/dL (33.0-37.0) 05/30/17 08:00 RDW 13.1 % (11.5-14.5) 05/30/17 08:00 Plt Count 200 K/uL (130-400) 05/30/17 08:00 MPV 6.5 fL (7.2-11.7) L 05/30/17 08:00 Neut % (Auto) 80.0 % (50.0-75.0) H 05/30/17 08:00 Lymph % (Auto) 10.7 % (20.0-40.0) L 05/30/17 08:00 [place]idan % (Auto) 8.2 % (0.0-10.0) 05/30/17 08:00 Eos % (Auto) 0.7 % (0.0-4.0) 05/30/17 08:00 Baso % (Auto) 0.4 % (0.0-2.0) 05/30/17 08:00 Neut # 10.1 K/uL (1.8-7.0) H 05/30/17 08:00 Lymph # 1.4 K/uL (1.0-4.3) 05/30/17 08:00 Sheridan # 1.0 K/uL (0.0-0.8) H 05/30/17 08:00 Eos # 0.1 K/uL (0.0-0.7) 05/30/17 08:00 Baso # 0.1 K/uL (0.0-0.2) 05/30/17 08:00 PT 10.9 SECONDS (9.7-12.2) 05/26/17 10:32 INR 1.0 05/26/17 10:32 APTT 33 SECONDS (21-34) 05/26/17 10:32 Sodium 135 mmol/L (132-148) 05/30/17 06:24 Potassium 4.2 mmol/L (3.6-5.2) 05/30/17 06:24 Chloride 103 mmol/L (98-107) 05/30/17 06:24 Carbon Dioxide 21 mmol/L (22-30) L 05/30/17 06:24 Anion Gap 15 (10-20) 05/30/17 06:24 BUN 12 mg/dL (9-20) 05/30/17 06:24 Creatinine 0.8 MG/DL (0.8-1.5) 05/30/17 06:24 Est GFR ( Amer) > 60 05/30/17 06:24 Est GFR (Non-Af Amer) > 60 05/30/17 06:24 POC Glucose (mg/dL) 234 mg/dL (65-110) H 05/31/17 11:33 Random Glucose 199 mg/dL (75-110) H 05/30/17 06:24 Hemoglobin A1c 7.2 % (4.2-6.5) H D 05/26/17 11:40 Calcium 8.6 mg/dl (8.6-10.4) 05/30/17 06:24 Phosphorus 3.8 mg/dL (2.5-4.5) 05/29/17 05:41 Magnesium 1.5 mg/dL (1.6-2.3) L 05/29/17 05:41 Total Bilirubin 0.6 mg/dL (0.2-1.3) 05/30/17 06:24 AST 25 U/L (17-59) 05/30/17 06:24 ALT 27 U/L (21-72) 05/30/17 06:24 Alkaline Phosphatase 28 U/L (38-126) L 05/30/17 06:24 Total Protein 5.7 g/dL (6.3-8.3) L 05/30/17 06:24 Albumin 3.3 g/dL (3.5-5.0) L D 05/30/17 06:24 Globulin 2.4 gm/dL (2.2-3.9) 05/30/17 06:24 Albumin/Globulin Ratio 1.4 (1.0-2.1) 05/30/17 06:24 Vancomycin Trough 5.4 ug/mL (5.0-10.0) 05/29/17 05:41 Blood Type O POSITIVE 05/28/17 00:53 Antibody Screen Negative 05/28/17 00:53 - Hospital Course Hospital Course: patient has long hostory of PAD with developing gangrene of right big toe, but patient delays suggestion- and due to non improvement of condition patient agreed for bypass,patient was stable post op with no unusual complaints Discharge Exam - Head Exam Head Exam: ATRAUMATIC, NORMOCEPHALIC - Eye Exam Eye Exam: absent: Nystagmus - ENT Exam ENT Exam: Mucous Membranes Moist - Neck Exam Neck exam: Full Rom - Respiratory Exam Respiratory Exam: Clear to PA & Lateral, NORMAL BREATHING PATTERN - Cardiovascular Exam Cardiovascular Exam: REGULAR RHYTHM - GI/Abdominal Exam GI & Abdominal Exam: Soft. absent: Tenderness - Extremities Exam Extremities exam: full ROM (ambulatory. right foot bandaged, with mild swelling , no unusual findings ) - Back Exam Back exam: absent: tenderness - Neurological Exam Neurological exam: Alert, Normal Gait, Oriented x3, Reflexes Normal - Psychiatric Exam Psychiatric exam: Normal Affect, Normal Mood - Skin Skin Exam: Normal Color Discharge Plan - Follow Up Plan Condition: STABLE Disposition: HOME/ ROUTINE
== END 2017-05-31 15:40 | disposition home or self-care (01) | DRG 253 ==
LOC: C.ER 09:16 → C.9E 11:00 → C.3T 13:43 → C.9I 05-28 22:08 → C.6T 05-30 10:21
PROVIDERS: ADMIT Internal Medicine; ATTEND Internal Medicine
PROC: 041M0ZP Bypass Right Popliteal Artery to Foot Artery, Open Approach (ICD-10-PCS; principal; 2017-05-28 14:07)
DX: E11.52 Type 2 diabetes mellitus with diabetic peripheral angiopathy with gangrene (principal); I10 Essential (primary) hypertension; Z79.4 Long term (current) use of insulin; E78.00 Pure hypercholesterolemia, unspecified; D64.9 Anemia, unspecified; Z86.11 Personal history of tuberculosis